=== PATIENT | female | born 1950 | race Caucasian/White ===

== ENCOUNTER 2016-10-03 14:09 | Inpatient (IN) | payer MEDICAID ==
[2016-10-03] VITALS (14 sets, daily range): BP systolic 95–191; BP diastolic 50–86; PULSE 46–68; RESP 12–21; TEMP 97.7; O2SAT 95–100
[~2016-10-03] VITALS: Ht 160 cm; Wt 80.8 kg
[~2016-10-03 14:09] MED LIST: ALBU8I INH; AZIT250T74 PO; CITA-48 PO; GLIP5 PO; HYDR-2768 PO; PERC10TA27 PO; PRED20 PO; SIMV20 PO; TRAZ50TA4 PO; XANA1TAB6 PO
--- NOTE | 2016-10-03 14:18 | PD ---
HPI Time Seen by Provider: 14:18 PFSH Past Medical History Anemia: Yes Arthritis: Yes Asthma: Yes Blood Disorders: No Bipolar Disorder: Yes Anxiety: Yes Depression: Yes Heart Rhythm Problems: No Cancer: Yes (PANCYTOPENIA - LEUKEMIA-myelodysplasia) Cardiac Catheterization: No Cardiovascular Problems: No High Cholesterol: No Chemotherapy: Yes (CURRENTLY) Congestive Heart Failure: No COPD: Yes Coronary Artery Disease: No Diabetes: Yes Diminished Hearing: Yes (SLIGHTLY [place]) Diverticulitis: Yes Endocrine: Yes Gastrointestinal Disorders: Yes (BOWEL OBSTRUCTION ) GERD: Yes Genitourinary: No Headaches: Yes Hypertension: No Immune Disorder: Yes (MYELODYSPLASIA) Musculoskeletal: Yes Neurologic: Yes Psychiatric: Yes (CLAUSTRAPHOBIA/ BIPOLAR) Reproductive: No Respiratory: Yes Immunizations Current: No Migraines: Yes Myocardial Infarction: No Radiation Therapy: No Menopausal: Yes : 5 Para: 3 Miscarriage: 1 : 1 Tubal Ligation: Yes Past Surgical History Abdominal Surgery: Yes (APPY, COLON RESECT/ ILEOSTOMY (reversed)) Appendectomy: Yes Coronary Artery Bypass Graft: No Ear Surgery: Yes (LEFT EAR -AGE 11) Oral Surgery: Yes (ORIF MANDIBLE) Pacemaker: No Tonsillectomy: Yes Other Surgery: Yes Social History Alcohol Use: No Tobacco Use: Yes (1/2 ppd) Substance Use: Yes Allergies-Medications (Allergen,Severity, Reaction): Coded Allergies: No Known Allergies (Unverified , 01/05/16) Reported Meds & Prescriptions Reported Meds & Active Scripts Active Deltasone 20 Mg Tab (Prednisone) 20 Mg Tab 20 Mg PO DAILY 4 Days Zithromax (Azithromycin) 250 Mg Tab 250 Mg PO DAILY 4 Days Ventolin Hfa (Albuterol Sulfate) 8 Gm Aero 1 Puff INH Q4 PRN * SHAKE WELL BEFORE USE * Reported Simvastatin 20 mg (Simvastatin) 20 Mg Tab 20 Mg PO HS Citalopram Hydrobromide 40 Mg Tab 40 Mg PO DAILY Trazodone Hcl (Trazodone HCl) 50 Mg Tab 50 Mg PO HS Percocet 10-325 mg (Oxycodone-Acetaminophen 10-325 mg) Oxycodone 10/325 Acetaminophen Tab 1 Tab PO TID Hctz (Hydrochlorothiazide) 25 Mg Tab 25 Mg PO EVERY OTHER DAY Glipizide 5 Mg Tab 5 Mg PO DAILY Xanax 1 mg (Alprazolam) Alprazolam 1 mg Tab 1 Mg PO TID Bronson Ramsey MD Oct 03, 2016 14:18
[2016-10-03] MEDS ORDERED: SODIUM CHLOR 0.9% 1000 ML INJ 1,000 ML IV ONE ×2 (14:19→18:00)
--- NOTE | 2016-10-03 14:26 | PD ---
HPI Chief Complaint: General Weakness Time Seen by Provider: 14:26 Travel History International Travel<30 days: No Contact w/Intl Traveler<30days: No Traveled to known affect area: No History of Present Illness HPI Patient 66-year-old female presenting to emergency for evaluation of hypoxia and hypotension. Patient was at her oncologist office, her vital signs were assessed and her O2 sat was 82% and her blood pressure was in the 80s systolic. Patient was placed on oxygen and EMS was notified. EMS states that she was 88 % on room air for them, she was placed on 2 L with a sat in the low 90s. Patient historically has low blood pressure however it usually in the mid upper 90s systolic, today it's been in the 80s. Patient states that she's been dealing with a chest cold for approximately one month, she just completed a course of azithromycin yesterday. She reports feeling weak, dizzy, nauseated. Her cough was productive with green sputum. She is currently on chemotherapy for myelodysplastic syndrome and she is followed by Dr. Mcclain. Past medical history is significant for COPD, type 2 diabetes, history of alcoholism and drug abuse remotely. PFSH Past Medical History Anemia: Yes Arthritis: Yes Asthma: Yes Blood Disorders: No Bipolar Disorder: Yes Anxiety: Yes Depression: Yes Heart Rhythm Problems: No Cancer: Yes (myelodysplastic syndrome) Cardiac Catheterization: No Cardiovascular Problems: No High Cholesterol: No Chemotherapy: Yes (VIDAZA) Congestive Heart Failure: No COPD: Yes Coronary Artery Disease: No Diabetes: Yes Diminished Hearing: Yes (SL[place]LY [place]) Diverticulitis: Yes GERD: Yes Genitourinary: No Headaches: Yes Hypertension: No Neurologic: Yes Reproductive: No Immunizations Current: No Migraines: Yes Myocardial Infarction: No Radiation Therapy: No Menopausal: Yes : 5 Para: 3 Miscarriage: 1 : 1 Tubal Ligation: Yes Past Surgical History Abdominal Surgery: Yes (COLON RESECT/ ILEOSTOMY (reversed)) Appendectomy: Yes Coronary Artery Bypass Graft: No Ear Surgery: Yes (LEFT EAR -AGE 11) Oral Surgery: Yes (ORIF MANDIBLE) Pacemaker: No Tonsillectomy: Yes Other Surgery: Yes Social History Alcohol Use: No (HX OF ALCOHOLISM) Tobacco Use: Yes (1/2 ppd) Substance Use: Yes Allergies-Medications (Allergen,Severity, Reaction): Coded Allergies: No Known Allergies (Unverified , 01/05/16) Reported Meds & Prescriptions Reported Meds & Active Scripts Active Reported Albuterol Neb (Albuterol Sulfate) 2.5 Mg/3 Ml Neb 2.5 Mg NEB TID NEB PRN Abilify (Aripiprazole) 20 Mg Tab 20 Mg PO DAILY Symbicort Inh (Budesonide/Formoterol Fumarate) 160-4.5 Mcg/Act Aero 1-2 Puff INH Q12HR PRN Lisinopril 5 Mg Tab 5 Mg PO DAILY Tradjenta (Linagliptin) 5 Mg Tab 5 Mg PO DAILY K-Tab (Potassium Chloride) 10 Meq Tab 10 Meq PO HS Lyrica (Pregabalin) 100 Mg Cap 100 Mg PO BID Omeprazole 20 Mg Tab 20 Mg PO DAILY Lortab (Hydrocodone-Acetaminophen) 10-325 Mg Tab 1 Tab PO TID PRN Hydrochlorothiazide 25 Mg Tab 25 Mg PO EVERY OTHER DAY PRN Alprazolam 1 Mg Tab 1 Mg PO TID PRN Glipizide XL (Glipizide) 5 Mg Redd 5 Mg PO BID Take with breakfast or first main meal of the day Simvastatin 20 Mg Tab 20 Mg PO HS Trazodone (Trazodone HCl) 50 Mg Tab 50 Mg PO HS PRN Citalopram (Citalopram Hydrobromide) 40 Mg Tab 40 Mg PO DAILY Ventolin Hfa 18 GM Inh (Albuterol Sulfate) 90 Mcg/Act Aer 2 Puff INH TID PRN Review of Systems Except as stated in HPI: all other systems reviewed are Neg General / Constitutional: Positive: Fever, Chills HENT: No: Headaches Cardiovascular: Positive: Dyspnea on exertion, No: Chest Pain or Discomfort Respiratory: Positive: Cough, Shortness of Breath Gastrointestinal: Positive: Nausea, No: Vomiting, Diarrhea, Abdominal Pain Genitourinary: No: Dysuria Neurologic: Positive: Weakness, Dizziness Physical Exam Narrative GENERAL: Well-developed, well-nourished, drowsy female. Resting in no acute distress. SKIN: Warm and dry. HEAD: Atraumatic. Normocephalic. EYES: Pupils equal and round. No scleral icterus. No injection or drainage. ENT: No nasal bleeding or discharge. Mucous membranes pink and moist. NECK: Trachea midline. No JVD. CARDIOVASCULAR: Regular rate and rhythm. RESPIRATORY: No accessory muscle use. Diminished, . GASTROINTESTINAL: Abdomen soft, non-tender, nondistended. Hepatic and splenic margins not palpable. MUSCULOSKELETAL: Extremities without clubbing, cyanosis, or edema. No obvious deformities. NEUROLOGICAL: Awake and alert. No obvious cranial nerve deficits. Motor grossly within normal limits. Five out of 5 muscle strength in the arms and legs. Normal speech. PSYCHIATRIC: Appropriate mood and affect; insight and judgment normal. Data Data Last Documented VS Vital Signs Date Time Temp Pulse Resp B/P Pulse Ox O2 Delivery O2 Flow Rate FiO2 10/03/16 17:30 100 50 10/03/16 15:12 BiPAP 10/03/16 14:25 14 2 10/03/16 14:13 97.7 54 114/57 Orders Electrocardiogram (10/03/16 14:19) Complete Blood Count With Diff (10/03/16 14:19) Comprehensive Metabolic Panel (10/03/16 14:19) Prothrombin Time / Inr (Pt) (10/03/16 14:19) Act Partial Throm Time (Ptt) (10/03/16 14:19) Lactic Acid Sepsis Protocol (10/03/16 14:19) Magnesium (Mg) (10/03/16 14:19) Ckmb (Isoenzyme) Profile (10/03/16 14:19) Troponin I (10/03/16 14:19) Urinalysis - C+S If Indicated (10/03/16 14:19) Blood Culture (10/03/16 14:19) Chest, Single Ap (10/03/16 14:19) Arterial Blood Gas (Abg) (10/03/16 14:19) Blood Glucose (10/03/16 14:19) Ecg Monitoring (10/03/16 14:19) Iv Access Insert/Monitor (10/03/16 14:19) Oximetry (10/03/16 14:19) Oxygen Administration (10/03/16 14:19) Sodium Chlor 0.9% 1000 Ml Inj (Ns 1000 M (10/03/16 14:19) Ct Pulmonary Angiogram (10/03/16 ) Resp Bipap / Cpap Non Invas Vt (10/03/16 ) Arterial Blood Gas (Abg) (10/03/16 15:50) Precautions (10/03/16 15:53) Urine Culture (10/03/16 16:15) Iohexol 350 Inj (Omnipaque 350 Inj) (10/03/16 16:54) Succinylcholine Inj (Quelicin Inj) (10/03/16 17:15) Etomidate Inj (Amidate Inj) (10/03/16 17:15) Propofol 1000 Mg/100 Ml Inj (Diprivan 10 (10/03/16 17:15) ^ Infusion (10/03/16 17:09) RASS (10/03/16 17:09) Neurological Rass Scale AICHA.Q2H (10/03/16 17:09) Propofol 1000 Mg/100 Ml Inj (Diprivan 10 (10/03/16 17:12) Succinylcholine Inj (Quelicin Inj) (10/03/16 17:15) Chest, Single Ap (10/03/16 ) Sodium Chlor 0.9% 1000 Ml Inj (Ns 1000 M (10/03/16 18:00) Arterial Blood Gas (Abg) (10/03/16 18:30) Restraints Non-Violent AICHA.Q3H (10/03/16 17:56) C Diff Toxin Pcr (10/03/16 17:56) Midazolam Inj (Versed Inj) (10/03/16 18:00) Midazolam Inj (Versed Inj) (10/03/16 18:01) Fentanyl Inj (Fentanyl Inj) (10/03/16 18:15) Midazolam 100 Mg/Ml Inj (Versed 100 Mg/M (10/03/16 18:15) Neurological Rass Scale Q30MX2,Q2HX4,Q4H (10/03/16 18:06) Sputum Culture And Gram Stain (10/03/16 18:14) Admit Order (Ed Use Only) (10/03/16 18:13) Labs Laboratory Tests Test 10/03/16 10/03/16 10/03/16 10/03/16 14:32 14:35 15:55 16:15 Blood Gas Puncture Site RT RADIAL LT RADIAL Blood Gas Patient Temperature 98.6 98.6 Blood Gas HCO3 29 mmol/L 27 mmol/L Blood Gas Base Excess 2.3 mmol/L 0.6 mmol/L Blood Gas Oxygen Saturation 88 % 94 % Arterial Blood pH 7.26 7.23 Arterial Blood Partial 66 mmHg 68 mmHg Pressure CO2 Arterial Blood Partial 83 mmHG 477 mmHG Pressure O2 Arterial Blood Oxygen Content 11.4 Vol % 13.3 Vol % Arterial Blood 7.2 % 5.0 % Carboxyhemoglobin Arterial Blood Methemoglobin 0.9 % 0.7 % Blood Gas Hemoglobin 9.1 G/DL 9.1 G/DL Oxygen Delivery Device NASAL CANNULA BIPAP Blood Gas Liter Flow 2 L/M White Blood Count 1.8 TH/MM3 Red Blood Count 3.00 MIL/MM3 Hemoglobin 9.5 GM/DL Hematocrit 28.4 % Mean Corpuscular Volume 94.5 FL Mean Corpuscular Hemoglobin 31.5 PG Mean Corpuscular Hemoglobin 33.4 % Concent Red Cell Distribution Width 20.3 % Platelet Count 56 TH/MM3 Mean Platelet Volume 10.6 FL Neutrophils (%) (Auto) 60.0 % Lymphocytes (%) (Auto) 27.2 % Monocytes (%) (Auto) 9.9 % Eosinophils (%) (Auto) 1.8 % Basophils (%) (Auto) 1.1 % Neutrophils # (Auto) 1.1 TH/MM3 Lymphocytes # (Auto) 0.5 TH/MM3 Monocytes # (Auto) 0.2 TH/MM3 Eosinophils # (Auto) 0.0 TH/MM3 Basophils # (Auto) 0.0 TH/MM3 CBC Comment AUTO DIFF Differential Total Cells 100 Counted Neutrophils % (Manual) 49 % Band Neutrophils % 3 % Lymphocytes % 34 % Monocytes % 10 % Eosinophils % 3 % Neutrophils # (Manual) 1.0 TH/MM3 Metamyelocytes 1 % Differential Comment FINAL DIFF MANUAL Platelet Estimate LOW Platelet Morphology Comment NORMAL Prothrombin Time 11.0 SEC Prothromb Time International 1.0 RATIO Ratio Activated Partial 28.2 SEC Thromboplast Time Sodium Level 141 MEQ/L Potassium Level 3.8 MEQ/L Chloride Level 107 MEQ/L Carbon Dioxide Level 30.5 MEQ/L Anion Gap 4 MEQ/L Blood Urea Nitrogen 13 MG/DL Creatinine 0.88 MG/DL Estimat Glomerular Filtration 65 ML/MIN Rate Random Glucose 83 MG/DL Lactic Acid Level 0.6 mmol/L Calcium Level 7.8 MG/DL Magnesium Level 1.9 MG/DL Total Bilirubin 0.3 MG/DL Aspartate Amino Transf 13 U/L (AST/SGOT) Alanine Aminotransferase 15 U/L (ALT/SGPT) Alkaline Phosphatase 81 U/L Total Creatine Kinase 74 U/L Troponin I LESS THAN 0.02 NG/ML Total Protein 6.4 GM/DL Albumin 3.0 GM/DL Blood Gas Ventilator Setting 16/8/RATE 12 Blood Gas Inspired Oxygen 100 % Urine Color YELLOW Urine Turbidity CLEAR Urine pH 5.0 Urine Specific [place] 1.011 Urine Protein NEG mg/dL Urine Glucose (UA) NEG mg/dL Urine Ketones NEG mg/dL Urine Occult Blood NEG Urine Nitrite NEG Urine Bilirubin NEG Urine Urobilinogen LESS THAN 2.0 MG/DL Urine Leukocyte Esterase NEG Urine RBC LESS THAN 1 /hpf Urine WBC 1 /hpf Urine Squamous Epithelial 2 /hpf Cells Urine Amorphous Sediment RARE Urine Bacteria RARE /hpf Urine Hyaline Casts 7 /lpf Urine Mucus FEW /lpf Microscopic Urinalysis Comment CATH-CULTURE IND MDM Medical Decision Making Medical Screen Exam Complete: Yes Emergency Medical Condition: Yes Interpretation(s) Last Impressions Chest X-Ray 10/03/16 1419 Signed Impressions: Service Date/Time: Monday, October 03, 2016 14:24 - CONCLUSION: Normal examination. Giorgi Lisa MD CT Angiography 10/03/16 0000 Signed Impressions: Service Date/Time: Monday, October 03, 2016 16:45 - CONCLUSION: No evidence of pulmonary embolism. Mild scarring predominantly in the lung bases, right greater than left. No mass is seen. Giorgi Lisa MD Laboratory Tests Test 10/03/16 10/03/16 10/03/16 10/03/16 14:32 14:35 15:55 16:15 Blood Gas Puncture Site RT RADIAL LT RADIAL Blood Gas Patient Temperature 98.6 98.6 Blood Gas HCO3 29 mmol/L 27 mmol/L Blood Gas Base Excess 2.3 mmol/L 0.6 mmol/L Blood Gas Oxygen Saturation 88 % 94 % Arterial Blood pH 7.26 7.23 Arterial Blood Partial 66 mmHg 68 mmHg Pressure CO2 Arterial Blood Partial 83 mmHG 477 mmHG Pressure O2 Arterial Blood Oxygen Content 11.4 Vol % 13.3 Vol % Arterial Blood 7.2 % 5.0 % Carboxyhemoglobin Arterial Blood Methemoglobin 0.9 % 0.7 % Blood Gas Hemoglobin 9.1 G/DL 9.1 G/DL Oxygen Delivery Device NASAL CANNULA BIPAP Blood Gas Liter Flow 2 L/M White Blood Count 1.8 TH/MM3 Red Blood Count 3.00 MIL/MM3 Hemoglobin 9.5 GM/DL Hematocrit 28.4 % Mean Corpuscular Volume 94.5 FL Mean Corpuscular Hemoglobin 31.5 PG Mean Corpuscular Hemoglobin 33.4 % Concent Red Cell Distribution Width 20.3 % Platelet Count 56 TH/MM3 Mean Platelet Volume 10.6 FL Neutrophils (%) (Auto) 60.0 % Lymphocytes (%) (Auto) 27.2 % Monocytes (%) (Auto) 9.9 % Eosinophils (%) (Auto) 1.8 % Basophils (%) (Auto) 1.1 % Neutrophils # (Auto) 1.1 TH/MM3 Lymphocytes # (Auto) 0.5 TH/MM3 Monocytes # (Auto) 0.2 TH/MM3 Eosinophils # (Auto) 0.0 TH/MM3 Basophils # (Auto) 0.0 TH/MM3 CBC Comment AUTO DIFF Differential Total Cells 100 Counted Neutrophils % (Manual) 49 % Band Neutrophils % 3 % Lymphocytes % 34 % Monocytes % 10 % Eosinophils % 3 % Neutrophils # (Manual) 1.0 TH/MM3 Metamyelocytes 1 % Differential Comment FINAL DIFF MANUAL Platelet Estimate LOW Platelet Morphology Comment NORMAL Prothrombin Time 11.0 SEC Prothromb Time International 1.0 RATIO Ratio Activated Partial 28.2 SEC Thromboplast Time Sodium Level 141 MEQ/L Potassium Level 3.8 MEQ/L Chloride Level 107 MEQ/L Carbon Dioxide Level 30.5 MEQ/L Anion Gap 4 MEQ/L Blood Urea Nitrogen 13 MG/DL Creatinine 0.88 MG/DL Estimat Glomerular Filtration 65 ML/MIN Rate Random Glucose 83 MG/DL Lactic Acid Level 0.6 mmol/L Calcium Level 7.8 MG/DL Magnesium Level 1.9 MG/DL Total Bilirubin 0.3 MG/DL Aspartate Amino Transf 13 U/L (AST/SGOT) Alanine Aminotransferase 15 U/L (ALT/SGPT) Alkaline Phosphatase 81 U/L Total Creatine Kinase 74 U/L Troponin I LESS THAN 0.02 NG/ML Total Protein 6.4 GM/DL Albumin 3.0 GM/DL Blood Gas Ventilator Setting 16/8/RATE 12 Blood Gas Inspired Oxygen 100 % Urine Color YELLOW Urine Turbidity CLEAR Urine pH 5.0 Urine Specific [place] 1.011 Urine Protein NEG mg/dL Urine Glucose (UA) NEG mg/dL Urine Ketones NEG mg/dL Urine Occult Blood NEG Urine Nitrite NEG Urine Bilirubin NEG Urine Urobilinogen LESS THAN 2.0 MG/DL Urine Leukocyte Esterase NEG Urine RBC LESS THAN 1 /hpf Urine WBC 1 /hpf Urine Squamous Epithelial 2 /hpf Cells Urine Amorphous Sediment RARE Urine Bacteria RARE /hpf Urine Hyaline Casts 7 /lpf Urine Mucus FEW /lpf Microscopic Urinalysis Comment CATH-CULTURE IND Vital Signs Date Time Temp Pulse Resp B/P Pulse Ox O2 Delivery O2 Flow Rate FiO2 10/03/16 14:54 100 100 10/03/16 14:25 14 95 Nasal Cannula 2 10/03/16 14:13 97.7 54 12 114/57 95 Differential Diagnosis Pulmonary embolism versus pneumonia versus pneumothorax versus anemia versus sepsis versus metabolic abnormality versus other Narrative Course Patient is a 66-year-old female presenting for evaluation of hypoxia and hypotension. Patient has mild dysplastic syndrome and was at Dr. Sy's office this morning and then eventually sent to emergency department. I discussed with Dr. Mcclain the events that transpired in the office. He states that her oxygen saturation was 82% on room air she was noted to be hypotensive this uncharacteristic for her. He states he is known her for several years and she has been very stable despite having a history of COPD. Labs and imaging ordered and pending. ABG shows respiratory acidosis, patient placed on BiPAP 16/8 and is tolerating. Repeat ABG ordered for 1599. Repeat ABG continued to show respiratory acidosis despite Bipap. Discussed with patient the results and the likely possibility of respiratory failure without intubation. CBC - WBC 1.8, hemoglobin 9.5/28.4 Chest x-ray showed no acute disease Urinalysis with her bacteria, reflux culture pending. Patient did not have any complaints of dysuria. CTA read by radiologist as negative for pulmonary embolism, mass. INTUBATION: The patient was put in optimal position for the procedure. Rapid sequence intubation was initiated by Dr. Ramsey using 20 milligrams of etomidate IV and 100 milligrams of succinylcholine IV. The patient was intubated with a 7.5 cuffed endotracheal tube. Tube placement was confirmed by visualization of the tube and balloon passing through the cords, capnometry and subsequent chest x-ray. Breath sounds were equal and well aerated bilaterally postintubation. No breath sounds over stomach. Patient tolerated procedure well Propofol drip started, patient became hypotensive, 1 L IV fluids ordered. Pt started to arouse and fight the ET tube, 2mg Versed ordered per Dr. Ramsey. Urinary catheter and NGT ordered Repeat ABG ordered for 1829. Dr. Ramsey spoke with Dr. Boswell who accepted admission. Diagnosis Primary Impression: Respiratory failure Qualified Code: J96.02 - Acute respiratory failure with hypercapnia Additional Impressions: Pancytopenia Myelodysplasia Admitting Information Admitting Physician Requests: Admit Condition: Critical Ghada Flor Oct 03, 2016 14:26 Admitting Physician Requests: Admit Condition: Critical Ghada Flor Oct 03, 2016 14:26
[2016-10-03 14:39] LABS: BLOOD GAS BASE EXCESS 2.3 mmol/L (-2-2); BLOOD GAS CARBOXYHEMOGLOBIN 7.2 % (0-4); BLOOD GAS HCO3 29 mmol/L (22-26); BLOOD GAS METHEMOGLOBIN 0.9 % (0-2); BLOOD GAS O2 HGB SATURATION 88 % (90-100); BLOOD GAS OXYGEN CONTENT 11.4 Vol % (12.0-20.0); BLOOD GAS PCO2 66 mmHg (38-42); BLOOD GAS PO2 83 mmHG (61-120); BLOOD GAS TOTAL HGB 9.1 G/DL (12.0-16.0); TEMP CORR TO 98.6
[2016-10-03 14:40] LABS: CRITICAL VALUE YES; DRAW SITE RT RADIAL; LITER FLOW 2 L/M; NUMBER OF ARTERIAL PUNCTURES 1; OXYGEN DEVICE NASAL CANNULA; STAT YES; ULNAR PULSE PRESENT
--- NOTE | 2016-10-03 15:01 | RADRPT ---
EXAM DATE/TIME: 10/03/2016 14:24 [facility] COMPARISON: CHEST SINGLE AP, January 15, 2015, 19:01. INDICATIONS : Short of breath, cold for 1 week. MEDICAL HISTORY : Chronic obstructive pulmonary disease. low blood pressure SURGICAL HISTORY : None. ENCOUNTER: Initial ACUITY: 1 week PAIN SCORE: 0/10 LOCATION: Bilateral chest FINDINGS: A single view of the chest demonstrates the lungs to be symmetrically aerated without evidence of mas s, infiltrate or effusion. The cardiomediastinal contours are unremarkable. Osseous structures are intact. CONCLUSION: Normal examination. Giorgi Lisa MD on October 03, 2016 at 14:59 Board Certified Radiologist. This report was verified electronically.
[2016-10-03] MEDS ORDERED: TRAZ50TA12 PO (15:13)
[2016-10-03] MEDS ORDERED: CITA40TA4 PO (15:13)
[2016-10-03] MEDS ORDERED: GLIP5TAB8 PO (15:13)
[2016-10-03] MEDS ORDERED: VENTAER INH (15:13)
[2016-10-03] MEDS ORDERED: SIMV20TA PO (15:13)
[2016-10-03] MEDS ORDERED: ALPR1TAB3 PO (15:15)
[2016-10-03] MEDS ORDERED: GLIP-157 PO (15:15)
[2016-10-03] MEDS ORDERED: HYDR25TA5 PO (15:18)
[2016-10-03] MEDS ORDERED: HYDR-3535 PO (15:18)
[2016-10-03] MEDS ORDERED: SYMB160A INH (15:21)
[2016-10-03] MEDS ORDERED: TRAD5TAB PO (15:21)
[2016-10-03] MEDS ORDERED: LYRI100C PO (15:21)
[2016-10-03] MEDS ORDERED: K-TA10TA PO (15:21)
[2016-10-03] MEDS ORDERED: OMEP20TA PO (15:21)
[2016-10-03] MEDS ORDERED: ALBU0.08 NEB (15:21)
[2016-10-03] MEDS ORDERED: LISI-519 PO (15:21)
[2016-10-03] MEDS ORDERED: ARIP1TAB7 PO (15:21)
[2016-10-03 15:46] LABS: AUTOMATED NEUTROPHIL # 1.1 TH/MM3 (1.8-7.7); BASOPHIL % 1.1 % (0.0-2.0); EOSINOPHIL % 1.8 % (0.0-4.0); HEMATOCRIT 28.4 % (35.0-46.0); LYMPH % 27.2 % (9.0-44.0); LYMPHOCYTE # 0.5 TH/MM3 (1.0-4.8); MEAN CELL VOLUME 94.5 FL (80.0-100.0); MEAN CORPUSCULAR HEMOGLOBIN 31.5 PG (27.0-34.0); MEAN CORPUSCULAR HGB CONC 33.4 % (32.0-36.0); MONO % 9.9 % (0.0-8.0); PLATELET COUNT 56 TH/MM3 (150-450); RED CELL DISTRIBUTION WIDTH 20.3 % (11.6-17.2); WHITE BLOOD COUNT 1.8 TH/MM3 (4.0-11.0)
[2016-10-03 15:50] LABS: APTT (PATIENT) 28.2 SEC (24.3-30.1); HEMO FLAGS AUTO DIFF
[2016-10-03 16:00] LABS: ALT (GPT) 15 U/L (10-53); ANION GAP 4 MEQ/L (5-15); AST (GOT) 13 U/L (15-37); BICARBONATE 30.5 MEQ/L (21.0-32.0); BLOOD UREA NITROGEN 13 MG/DL (7-18); CHLORIDE 107 MEQ/L (98-107); GLOMERULAR FILTRATION RATE 65 ML/MIN (>89); MAGNESIUM 1.9 MG/DL (1.5-2.5); POTASSIUM 3.8 MEQ/L (3.5-5.1); SODIUM (NA) 141 MEQ/L (136-145)
[2016-10-03 16:01] LABS: BLOOD GAS BASE EXCESS 0.6 mmol/L (-2-2); BLOOD GAS HCO3 27 mmol/L (22-26); BLOOD GAS METHEMOGLOBIN 0.7 % (0-2); BLOOD GAS O2 HGB SATURATION 94 % (90-100); BLOOD GAS OXYGEN CONTENT 13.3 Vol % (12.0-20.0); BLOOD GAS PCO2 68 mmHg (38-42); BLOOD GAS PO2 477 mmHG (61-120); BLOOD GAS TOTAL HGB 9.1 G/DL (12.0-16.0); CRITICAL VALUE YES; DRAW SITE LT RADIAL; FIO2 100 %; NUMBER OF ARTERIAL PUNCTURES 1; OXYGEN DEVICE BIPAP; TEMP CORR TO 98.6; ULNAR PULSE Y; VENT SETTINGS 16/8/RATE 12
[2016-10-03 16:02] LABS: STAT YES
[2016-10-03 16:03] LABS: ALKALINE PHOSPHATASE 81 U/L (45-117); TOTAL BILIRUBIN ADULT 0.3 MG/DL (0.2-1.0)
[2016-10-03 16:11] LABS: CREATINE KINASE 74 U/L (26-192)
[2016-10-03 16:35] LABS: BACTERIA, URINE RARE /hpf; BLOOD, URINE NEG (NEG); GLUCOSE,URINE NEG (NEG); HYALINE CAST, URINE 7 /lpf (RARE); KETONE, URINE NEG (NEG); MUCUS URINE FEW /lpf (OCC); NITRITE,URINE NEG (NEG); SQUAMOUS EPITHELIAL CELL URINE 2 /hpf (0-5); URINE COLOR YELLOW (YELLW/STRAW)
[2016-10-03 16:36] LABS: COMMENT (UR) CATH-CULTURE IND; CULTURE IF INDICATED CATH CULTURE IND
[2016-10-03] MEDS ORDERED: IOHEXOL 350 MG/ML 10 ML VIAL (for RAD DIAG) IV ONE (16:54)
[2016-10-03] MEDS ORDERED: PROPOFOL 1000 MG/100 ML INJ 100 ML ONE (17:12)
[2016-10-03] MEDS ORDERED: ETOMIDATE 20 MG/10 ML VIAL IV PUSH ONE (17:15)
[2016-10-03] MEDS ORDERED: PROPOFOL 1000 MG/100 ML INJ 100 ML IV SCH (17:15)
[2016-10-03] MEDS ORDERED: SUCCINYLCHOLINE CHLORIDE 200 MG/10 ML VIAL ONE (17:15)
[2016-10-03] MEDS ORDERED: SUCCINYLCHOLINE CHLORIDE 200 MG/10 ML VIAL IV PUSH ONE (17:15)
--- NOTE | 2016-10-03 17:25 | RADRPT ---
EXAM DATE/TIME: 10/03/2016 16:45 [facility] COMPARISON: No previous studies available for comparison. INDICATIONS : Patient hypotensive and short of breath. IV CONTRAST: 75 cc Omnipaque 350 (iohexol) IV RADIATION DOSE: 23.43 CTDIvol (mGy) MEDICAL HISTORY : Diabetes mellitus type 1. Chronic obstructive pulmonary disease. Leukemia. SURGICAL HISTORY : Appendectomy. Tubal ligation. ENCOUNTER: Initial ACUITY: 1 day PAIN SCALE: 5/10 LOCATION: Bilateral chest TECHNIQUE: Volumetric scanning of the chest was performed using a pulmonary embolism protocol MIP images were re constructed. Using automated exposure control and adjustment of the mA and/or kV according to patien t size, radiation dose was kept as low as reasonably achievable to obtain optimal diagnostic quality images. DICOM format image data is available electronically for review and comparison. Follow-up recommendations for incidentally detected pulmonary nodules are based at a minimum on nodul e size and patient risk factors according to Fleischner Society Guidelines. FINDINGS: CTA of the chest demonstrates no obvious pulmonary embolism. No filling defects are noted. There is coronary atherosclerotic disease present. Lungs are clear except for mild bibasilar atelectasis and diffuse scarring. CONCLUSION: No evidence of pulmonary embolism. Mild scarring predominantly in the lung bases, right greater than left. No mass is seen. Giorgi Lisa MD on October 03, 2016 at 17:21 Board Certified Radiologist. This report was verified electronically.
--- NOTE | 2016-10-03 17:35 | PD ---
Physical Exam Date Seen by Provider: Oct 03, 2016 Narrative 66-year-old female was sent from her oncologist office for hypoxia. Her oxygen saturation at the office was 84%. Patient was short of breath. Patient was brought in by EMS. Patient was seen by the nurse practitioner and I'm supervising her. The nurse practitioner spoke with the oncologist Dr. Mcclain and was told that he has known her as a cancer patient for some time and the hypoxia is a new onset symptom. He was worried about pneumonia as well as PE. CT scan for pulmonary angiogram was ordered. Awaiting for the CAT scan report. Meanwhile patient had a blood gas done that showed respiratory acidosis. She was started on BiPAP as per my orders. However the repeat blood gas did not improve the respiratory acidosis. At this point I went and spoke with the patient again and explained to her the situation. Patient appeared to be more lethargic than before but did seem to understand. I explained to her that in order to prevent respiratory failure and crash intubation I would recommend a control intubation at this point and patient consented verbally to that. Intubation was done by my nurse practitioner and I supervised her. He is referred to my procedure note. Patient tolerated the procedure well. Post intubation x-ray will be ordered. Awaiting for the shank threader to call back. Data Data Last Documented VS Orders Electrocardiogram (10/03/16 14:19) Complete Blood Count With Diff (10/03/16 14:19) Comprehensive Metabolic Panel (10/03/16 14:19) Prothrombin Time / Inr (Pt) (10/03/16 14:19) Act Partial Throm Time (Ptt) (10/03/16 14:19) Lactic Acid Sepsis Protocol (10/03/16 14:19) Magnesium (Mg) (10/03/16 14:19) Ckmb (Isoenzyme) Profile (10/03/16 14:19) Troponin I (10/03/16 14:19) Urinalysis - C+S If Indicated (10/03/16 14:19) Blood Culture (10/03/16 14:19) Chest, Single Ap (10/03/16 14:19) Arterial Blood Gas (Abg) (10/03/16 14:19) Blood Glucose (10/03/16 14:19) Ecg Monitoring (10/03/16 14:19) Iv Access Insert/Monitor (10/03/16 14:19) Oximetry (10/03/16 14:19) Oxygen Administration (10/03/16 14:19) Sodium Chlor 0.9% 1000 Ml Inj (Ns 1000 M (10/03/16 14:19) Ct Pulmonary Angiogram (10/03/16 ) Resp Bipap / Cpap Non Invas Vt (10/03/16 ) Arterial Blood Gas (Abg) (10/03/16 15:50) Precautions (10/03/16 15:53) Urine Culture (10/03/16 16:15) Iohexol 350 Inj (Omnipaque 350 Inj) (10/03/16 16:54) Succinylcholine Inj (Quelicin Inj) (10/03/16 17:15) Etomidate Inj (Amidate Inj) (10/03/16 17:15) Propofol 1000 Mg/100 Ml Inj (Diprivan 10 (10/03/16 17:15) ^ Infusion (10/03/16 17:09) RASS (10/03/16 17:09) Neurological Rass Scale AICHA.Q2H (10/03/16 17:09) Propofol 1000 Mg/100 Ml Inj (Diprivan 10 (10/03/16 17:12) Succinylcholine Inj (Quelicin Inj) (10/03/16 17:15) Chest, Single Ap (10/03/16 ) Sodium Chlor 0.9% 1000 Ml Inj (Ns 1000 M (10/03/16 18:00) Arterial Blood Gas (Abg) (10/03/16 18:30) Restraints Non-Violent AICHA.Q3H (10/03/16 17:56) Midazolam Inj (Versed Inj) (10/03/16 18:00) Midazolam Inj (Versed Inj) (10/03/16 18:01) Fentanyl Inj (Fentanyl Inj) (10/03/16 18:15) Midazolam 100 Mg/Ml Inj (Versed 100 Mg/M (10/03/16 18:15) Neurological Rass Scale Q30MX2,Q2HX4,Q4H (10/03/16 18:06) Sputum Culture And Gram Stain (10/03/16 18:14) Admit Order (Ed Use Only) (10/03/16 18:13) Labs Laboratory Tests Test 10/03/16 10/03/16 14:35 16:15 White Blood Count 1.8 TH/MM3 Red Blood Count 3.00 MIL/MM3 Hemoglobin 9.5 GM/DL Hematocrit 28.4 % Mean Corpuscular Volume 94.5 FL Mean Corpuscular Hemoglobin 31.5 PG Mean Corpuscular Hemoglobin 33.4 % Concent Red Cell Distribution Width 20.3 % Platelet Count 56 TH/MM3 Mean Platelet Volume 10.6 FL Neutrophils (%) (Auto) 60.0 % Lymphocytes (%) (Auto) 27.2 % Monocytes (%) (Auto) 9.9 % Eosinophils (%) (Auto) 1.8 % Basophils (%) (Auto) 1.1 % Neutrophils # (Auto) 1.1 TH/MM3 Lymphocytes # (Auto) 0.5 TH/MM3 Monocytes # (Auto) 0.2 TH/MM3 Eosinophils # (Auto) 0.0 TH/MM3 Basophils # (Auto) 0.0 TH/MM3 CBC Comment AUTO DIFF Differential Total Cells 100 Counted Neutrophils % (Manual) 49 % Band Neutrophils % 3 % Lymphocytes % 34 % Monocytes % 10 % Eosinophils % 3 % Neutrophils # (Manual) 1.0 TH/MM3 Metamyelocytes 1 % Differential Comment FINAL DIFF MANUAL Platelet Estimate LOW Platelet Morphology Comment NORMAL Urine Color YELLOW Urine Turbidity CLEAR Urine pH 5.0 Urine Specific [place] 1.011 Urine Protein NEG mg/dL Urine Glucose (UA) NEG mg/dL Urine Ketones NEG mg/dL Urine Occult Blood NEG Urine Nitrite NEG Urine Bilirubin NEG Urine Urobilinogen LESS THAN 2.0 MG/DL Urine Leukocyte Esterase NEG Urine RBC LESS THAN 1 /hpf Urine WBC 1 /hpf Urine Squamous Epithelial 2 /hpf Cells Urine Amorphous Sediment RARE Urine Bacteria RARE /hpf Urine Hyaline Casts 7 /lpf Urine Mucus FEW /lpf Microscopic Urinalysis Comment CATH-CULTURE IND MDM Supervised Visit with LEMUEL: Yes Critical Care Narrative Aggregate critical care time was 60 minutes. Time to perform other separately billable procedures was not included in the critical care time. My time did not include minutes spent treating any other patients simultaneously or on activities that did not directly contribute to the patient's treatment. The services I provided to this patient were to treat and/or prevent clinically significant deterioration that could result in: Hypoxia, respiratory acidosis, impending respiratory failure I provided critical care services requiring my management, as noted below: Chart data review, documentation time, medication orders and management, vital sign assessments/reviewing monitor data, ordering and reviewing lab tests, ordering and interpreting/reviewing x-rays and diagnostic studies, care of the patient and discussion of the patient with the admitting physicians. Procedures Procedure Narrative After the risks and benefits were discussed the following procedure was performed: INTUBATION: The patient was put in optimal position for the procedure. Rapid sequence intubation was initiated by me using 20 milligrams of etomidate IV and 100 milligrams of succinylcholine IV. The patient was intubated with a 7.5 cuffed endotracheal tube. Tube placement was confirmed by visualization of the tube and balloon passing through the cords, capnometry and subsequent chest x-ray. Breath sounds were equal and well aerated bilaterally postintubation. No breath sounds over stomach. Patient tolerated procedure well. Diagnosis Primary Impression: Respiratory acidosis Additional Impression: Respiratory failure Qualified Code: J96.02 - Acute respiratory failure with hypercapnia Admitting Information Admitting Physician Requests: Admit Scripts Prednisone 10 Mg Tab10 Mg PO DAILY #3 TAB Ref 0 Prov:Ivanna Pinzon MD 10/07/16 Prednisone 5 Mg Tab5 Mg PO DAILY #3 TAB Ref 0 Prov:Ivanna Pinzon MD 10/07/16 Prednisone 20 Mg Tab20 Mg PO DAILY #3 TAB Ref 0 Prov:Ivanna Pinzon MD 10/07/16 Prednisone 20 Mg Tab40 Mg PO DAILY #4 TAB Ref 0 Take 40 mg (2 tablets) daily for 5 days Prov:Ivanna Pinzon MD 10/07/16 Prednisone 20 Mg Tab40 Mg PO BID #8 TAB Prov:Ivanna Pinzon MD 10/07/16 Levofloxacin (Levaquin)750 Mg [id number] Mg PO DAILY@21 #2 TAB Prov:Ivanna Pinzon MD 10/07/16 Oxygen tank 1 Ea Tank #1 Liter Bobby.canula Continuous Oxygen Concentrator Portable Gaseous 2 L/min via Nasal Cannula Continuous For 99 months Prov:Ivanna Pinzon MD 10/07/16 Bronson Ramsey MD Oct 03, 2016 17:35 Urine Mucus FEW /lpf Microscopic Urinalysis Comment CATH-CULTURE IND MDM Supervised Visit with LEMUEL: Yes Critical Care Narrative Aggregate critical care time was 60 minutes. Time to perform other separately billable procedures was not included in the critical care time. My time did not include minutes spent treating any other patients simultaneously or on activities that did not directly contribute to the patient's treatment. The services I provided to this patient were to treat and/or prevent clinically significant deterioration that could result in: Hypoxia, respiratory acidosis, impending respiratory failure I provided critical care services requiring my management, as noted below: Chart data review, documentation time, medication orders and management, vital sign assessments/reviewing monitor data, ordering and reviewing lab tests, ordering and interpreting/reviewing x-rays and diagnostic studies, care of the patient and discussion of the patient with the admitting physicians. Procedures Procedure Narrative After the risks and benefits were discussed the following procedure was performed: INTUBATION: The patient was put in optimal position for the procedure. Rapid sequence intubation was initiated by me using 20 milligrams of etomidate IV and 100 milligrams of succinylcholine IV. The patient was intubated with a 7.5 cuffed endotracheal tube. Tube placement was confirmed by visualization of the tube and balloon passing through the cords, capnometry and subsequent chest x-ray. Breath sounds were equal and well aerated bilaterally postintubation. No breath sounds over stomach. Patient tolerated procedure well. Diagnosis Primary Impression: Respiratory acidosis Additional Impression: Respiratory failure Qualified Code: J96.02 - Acute respiratory failure with hypercapnia Admitting Information Admitting Physician Requests: Admit Bronson Ramsey MD Oct 03, 2016 17:35
[2016-10-03 17:43] LABS: BANDS 3 % (0-6); EOSINOPHILS 3 % (0-4); METAMYELOCYTES 1 % (0-1); POLYS (SEG NEUTROPHILS) 49 % (16-70); WBC DIFF SAMPLE 100
[2016-10-03 17:44] LABS: PLATELET ESTIMATE SMEAR LOW (NORMAL); PLATELET MORPHOLOGY NORMAL (NORMAL); SCAN/DIFF FINAL DIFF MANUAL
[2016-10-03] MEDS ORDERED: MIDAZOLAM HCL 2 MG/2 ML VIAL IV PUSH ONE (18:00)
[2016-10-03] MEDS ORDERED: MIDAZOLAM HCL 5 MG/ML VIAL (1 ML) ONE (18:01)
[2016-10-03] MEDS ORDERED: MIDAZOLAM 100 MG/ML INJ 100 ML IV SCH ×2 (18:15→19:00)
[2016-10-03] MEDS ORDERED: MIDAZOLAM 100 MG/ML INJ 100 ML ONE (18:27)
[2016-10-03] MEDS ORDERED: RESP: ALBUTEROL 2.5 MG/IPRATROPIUM 0.5 MG NEB (SCH) NEB (18:30)
[2016-10-03] MEDS ORDERED: fentaNYL DRIP 250 ML IV SCH ×2 (18:30→19:00)
[2016-10-03] MEDS ORDERED: DOPamine INJ PREMIX 500 ML IV SCH (18:30)
[2016-10-03] MEDS ORDERED: TERBUTALINE INJ 1 MG/ML AMP SQ PRN (18:30)
[2016-10-03] MEDS ORDERED: fentaNYL DRIP 250 ML ONE (18:39)
[2016-10-03] MEDS ORDERED: RESP: ALBUTEROL 2.5 MG/IPRATROPIUM 0.5 MG NEB (PRN) ONE (18:41)
[2016-10-03 18:49] LABS: BLOOD GAS BASE EXCESS -2.9 mmol/L (-2-2); BLOOD GAS CARBOXYHEMOGLOBIN 2.7 % (0-4); BLOOD GAS HCO3 24 mmol/L (22-26); BLOOD GAS METHEMOGLOBIN 0.8 % (0-2); BLOOD GAS O2 HGB SATURATION 93 % (90-100); BLOOD GAS OXYGEN CONTENT 11.8 Vol % (12.0-20.0); BLOOD GAS PCO2 66 mmHg (38-42); BLOOD GAS PO2 106 mmHG (61-120); BLOOD GAS TOTAL HGB 8.8 G/DL (12.0-16.0); CRITICAL VALUE YES; OXYGEN DEVICE PRVC; TEMP CORR TO 98.6; VENT SETTINGS 18/500/5
[2016-10-03 18:50] LABS: DRAW SITE RT RADIAL; FIO2 50 %; NUMBER OF ARTERIAL PUNCTURES 1; STAT YES; ULNAR PULSE Y
[2016-10-03] MEDS ORDERED: CHLORHEXIDINE GLUCONATE 2 % 1 PACK (2 CLOTHS) TOP PRN (19:00)
[2016-10-03] MEDS ORDERED: POTASSIUM PHOSPHATE INJ 30 MMOL in SODIUM CHLOR 0.9% 250 ML INJ 250 ML IV PRN (19:00)
[2016-10-03] MEDS ORDERED: SODIUM CHLORIDE 0.9% FLUSH 10 ML FLUSH IV FLUSH PRN (19:00)
[2016-10-03] MEDS ORDERED: POTASSIUM PHOSPHATE MONOBASIC 500 MG TAB PO/TUBE PRN (19:00)
[2016-10-03] MEDS ORDERED: RESP: ALBUTEROL 2.5 MG/3 ML NEB (PRN) INH (19:00)
[2016-10-03] MEDS ORDERED: SODIUM PHOSPHATE INJ 30 MMOL in SODIUM CHLOR 0.9% 250 ML INJ 240 ML IV PRN (19:00)
[2016-10-03] MEDS ORDERED: ONDANSETRON HCL 4 MG/2 ML VIAL IV PRN (19:00)
[2016-10-03] MEDS ORDERED: MAGNESIUM SULFATE INJ 2 GM in SODIUM CHLORIDE 0.9% INJ 96 ML IV PRN (19:00)
[2016-10-03] MEDS ORDERED: POTASSIUM CHLOR 20 MEQ PREMIX 100 ML IV PRN ×2 (19:00)
[2016-10-03] MEDS ORDERED: POTASSIUM CHLORIDE 25 MEQ EFFERVESCENT TAB PO PRN (19:00)
[2016-10-03] MEDS ORDERED: LACTULOSE SYRUP 20 GM/30 ML CUP PO PRN (19:00)
[2016-10-03] MEDS ORDERED: MIDAZOLAM HCL 2 MG/2 ML VIAL IV PRN (19:00)
[2016-10-03] MEDS ORDERED: POTASSIUM PHOSPHATE MONOBASIC 500 MG TAB PO PRN (19:00)
[2016-10-03] MEDS ORDERED: POTASSIUM CHLOR 40 MEQ PREMIX 100 ML IV PRN ×2 (19:00)
[2016-10-03] MEDS ORDERED: VECURONIUM BROMIDE 10 MG VIAL IV PUSH ONE (19:00)
[2016-10-03] MEDS ORDERED: MAGNESIUM SULFATE INJ 4 GM in SODIUM CHLORIDE 0.9% INJ 92 ML IV PRN (19:00)
[2016-10-03] MEDS ORDERED: MISCELLANEOUS NURSING INFORMATION XX SCH (19:00)
[2016-10-03] MEDS ORDERED: MAGNESIUM OXIDE 400 MG TAB PO PRN (19:00)
[2016-10-03] MEDS ORDERED: BISACODYL 10 MG SUPP RECTAL PRN (19:00)
[2016-10-03] MEDS ORDERED: ACETAMINOPHEN 325 MG TAB PO PRN (19:00)
[2016-10-03] MEDS ORDERED: SENNOSIDES 8.6 MG TAB PO PRN (19:00)
[2016-10-03] MEDS ORDERED: MAGNESIUM HYDROXIDE SUSP 30 ML CUP PO PRN (19:00)
--- NOTE | 2016-10-03 19:06 | HHI.HP ---
[facility] Service Critical Care Medicine Primary Care Physician Kuldeep Wilcox, DO Admission Diagnosis respiratory failure, hypoxia, leukopenia, myelodysplastic syndrome Diagnosis: Travel History International Travel<30 Days: No Contact w/Intl Traveler <30 Da: No Traveled to Known Affected Are: No History of Present Illness Patient is intubated and unable to provide history. History was obtained by review of the EMR, discussion with the ED physician, discussion with patient's sister. 66-year-old female with past medical history of myelodysplastic disorder (dx'd ~ 10 yrs ago, followed by Dr. Mcclain, on [facility]) , COPD (NOT requiring home O2), diabetes mellitus, Bipolar disorder, remote history of drug abuse and alcoholism who presented to [facility] emergency department for evaluation of hypoxia and hypotension. She was in her oncologist office and sats were 82% on RA and blood pressure was in the 80s. Per EVAC sats were 88% on room air. She was placed on 2 L nasal cannula and sats were in the 90s. Apparently patient has a baseline blood pressure in the 90s. She has dealt with a cough for about 3 weeks. About a week ago she was prescribed azithromycin. Reportedly her cough is now productive of green sputum. She has not been febrile. ED workup revealed that she was in acute hypercapnic respiratory failure with pH 7.26/PaCO2 of 66/PaO2 of 83/bicarbonate of 29 on 2 L nasal cannula. She was placed on BiPAP 16/8 and was tolerating well. After one hour on BiPAP a repeat ABG showed pH of 7.23/PaCO2 of 68/PaO2 of 477 and she agreed to intubation by ED provider. She underwent CT pulmonary angiogram that was negative for pulmonary embolism. Her lactic acid is 0.6. Troponin is less than 0.02. She is pancytopenic with white blood cell count of 1.8, ANC 936, hemoglobin 9.5, platelets 56. Her BP was initially 114/57-131/61 in the ED when on BiPAP. After she was intubated and placed on propofol she was hypotensive with systolics in the high 80s to low 90s. Propofol was discontinued and she was placed on a Versed drip at 3 mg per hour. She was bolused 2 L normal saline. When I arrived to evaluate her in the ED she was not well sedated, intermittently biting on tube, wheezing, airtrapping with autoPEEP on vent. ABG had just been obtained and was 7.19//105. Vent was adjusted by decreasing respiratory rate and she was sedated with fentanyl bolus and drip, versed bolus. Given vecuronium 10 mg IV. 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 PMD is Dr. Wilcox in [facility] oncologist is Dr. Tim Mcclain Past Surgical History Bowel obstruction due to diverticulitis - exploratory laparoscopy with lysis of adhesions, partial bowel small bowel resection and ileostomy06/27/10 (Dr. Barrios) Ileostomy reversal Mastoidectomy in childhood Bilateral tubal ligation ORIF mandible Appendectomy Tonsillectomy Reported Medications Lisinopril 5 mill grams by mouth daily Lyrica 100 mg po bid Citalopram 40 mg's by mouth daily Trazodone 50 mill grams by mouth daily at bedtime Abilify 20 mg by mouth daily Xanax 1 mill grams by mouth 3 times a day when necessary anxiety Albuterol 2 puffs inhaled 3 times a day when necessary shortness of breath Symbicort Budesonide 160/Formoterol 4.5 mcg 1-2 puffs inhaled every 12 hours as needed Linagliptin 5 mill grams by mouth daily Glipizide ER 5 mill grams by mouth twice a day Simvastatin 20 mill grams by mouth daily at bedtime Lortab 10/325 one by mouth 3 times a day when necessary pain Omeprazole 20 mg by mouth daily Potassium chloride 10 mEq by mouth daily at bedtime HCTZ 25 mg by mouth every other day as needed for edema Family History Mother at age 83 from lung cancer Social History She has smoked a pack of cigarettes per day since age 20. She has been cutting back and is currently at about a half a pack a week She previously has a history of alcoholism. Her sister was unsure how much she used to drink or for how long she drank. She states she quit drinking many years ago and had been to rehabilitation in the past She has a history of drug abuse. She has used marijuana. Her sister is unsure what other drugs she has used but did not believe that she has used IV drugs She lives alone She is . Reportedly she does not have a living will She has 3 sons who are named NathanielTim Justino. Justino was present in the ED. Physical Exam Vital Signs Vital Signs Date Time Temp Pulse Resp B/P Pulse Ox O2 Delivery O2 Flow Rate FiO2 10/03/16 18:44 98 50 10/03/16 17:30 100 50 10/03/16 15:12 100 BiPAP 10/03/16 14:54 100 100 10/03/16 14:25 14 95 Nasal Cannula 2 10/03/16 14:13 97.7 54 12 114/57 95 Physical Exam Drips: Versed 3 mg/h GENERAL: Well-nourished, well-developed patient who is orotracheally intubated, sedated. SKIN: Warm and dry, adequately perfused. HEAD: Atraumatic. Normocephalic. EYES: Pupils equal and round, 2 mm and sluggishly reactive bilaterally. She is tearing.. No scleral icterus. No injection or drainage. ENT: No nasal bleeding or discharge. Mucous membranes pink and moist. NECK: Trachea midline. No JVD. CARDIOVASCULAR: Sinus bradycardia with rate in the 50s on the monitor.. No murmurs rubs or gallops. RESPIRATORY: 7.[address] She is intermittently biting the tube and getting inadequate volumes. Once sedated and getting adequate volumes she had autoPEEP noted on vent. Respiratory rate decreased and patient then synchronous and getting adequate volume. Has bilateral expiratory wheeze. No Rales or rhonchi. GASTROINTESTINAL: Abdomen soft, non-tender, nondistended. There is a scar in mid abdomen. There is no ileostomy scar in right abdomen that is well-healed. Bowel sounds are hypoactive. : Hawkins is in place with yellow urine output. MUSCULOSKELETAL: Extremities without clubbing, cyanosis, or edema. No obvious deformities. NEUROLOGICAL: Opens eyes and sits up intermittently. Was moving all extremities without focal deficit. Did not follow commands when I evaluated post-intubation and sedation. Not able to hold all sedation to assess neurologic status due to respiratory condition and severe vent dyssynchrony Laboratory Laboratory Tests Test 10/03/16 10/03/16 10/03/16 10/03/16 14:32 14:35 15:55 16:15 Blood Gas Puncture Site RT RADIAL LT RADIAL Blood Gas Patient Temperature 98.6 98.6 Blood Gas HCO3 29 27 Blood Gas Base Excess 2.3 0.6 Blood Gas Oxygen Saturation 88 94 Arterial Blood pH 7.26 7.23 Arterial Blood Partial 66 68 Pressure CO2 Arterial Blood Partial 83 477 Pressure O2 Arterial Blood Oxygen Content 11.4 13.3 Arterial Blood 7.2 5.0 Carboxyhemoglobin Arterial Blood Methemoglobin 0.9 0.7 Blood Gas Hemoglobin 9.1 9.1 Oxygen Delivery Device NASAL CANNULA BIPAP Blood Gas Liter Flow 2 White Blood Count 1.8 Red Blood Count 3.00 Hemoglobin 9.5 Hematocrit 28.4 Mean Corpuscular Volume 94.5 Mean Corpuscular Hemoglobin 31.5 Mean Corpuscular Hemoglobin 33.4 Concent Red Cell Distribution Width 20.3 Platelet Count 56 Mean Platelet Volume 10.6 Neutrophils (%) (Auto) 60.0 Lymphocytes (%) (Auto) 27.2 Monocytes (%) (Auto) 9.9 Eosinophils (%) (Auto) 1.8 Basophils (%) (Auto) 1.1 Neutrophils # (Auto) 1.1 Lymphocytes # (Auto) 0.5 Monocytes # (Auto) 0.2 Eosinophils # (Auto) 0.0 Basophils # (Auto) 0.0 CBC Comment AUTO DIFF Differential Total Cells 100 Counted Neutrophils % (Manual) 49 Band Neutrophils % 3 Lymphocytes % 34 Monocytes % 10 Eosinophils % 3 Neutrophils # (Manual) 1.0 Metamyelocytes 1 Differential Comment FINAL DIFF MANUAL Platelet Estimate LOW Platelet Morphology Comment NORMAL Prothrombin Time 11.0 Prothromb Time International 1.0 Ratio Activated Partial 28.2 Thromboplast Time Sodium Level 141 Potassium Level 3.8 Chloride Level 107 Carbon Dioxide Level 30.5 Anion Gap 4 Blood Urea Nitrogen 13 Creatinine 0.88 Estimat Glomerular Filtration 65 Rate Random Glucose 83 Lactic Acid Level 0.6 Calcium Level 7.8 Magnesium Level 1.9 Total Bilirubin 0.3 Aspartate Amino Transf 13 (AST/SGOT) Alanine Aminotransferase 15 (ALT/SGPT) Alkaline Phosphatase 81 Total Creatine Kinase 74 Troponin I LESS THAN 0.02 Total Protein 6.4 Albumin 3.0 Blood Gas Ventilator Setting 16/8/RATE 12 Blood Gas Inspired Oxygen 100 Urine Color YELLOW Urine Turbidity CLEAR Urine pH 5.0 Urine Specific [place] 1.011 Urine Protein NEG Urine Glucose (UA) NEG Urine Ketones NEG Urine Occult Blood NEG Urine Nitrite NEG Urine Bilirubin NEG Urine Urobilinogen LESS THAN 2.0 Urine Leukocyte Esterase NEG Urine RBC LESS THAN 1 Urine WBC 1 Urine Squamous Epithelial 2 Cells Urine Amorphous Sediment RARE Urine Bacteria RARE Urine Hyaline Casts 7 Urine Mucus FEW Microscopic Urinalysis Comment CATH-CULTURE IND Test 10/03/16 18:30 Blood Gas Puncture Site RT RADIAL Blood Gas Patient Temperature 98.6 Blood Gas HCO3 24 Blood Gas Base Excess -2.9 Blood Gas Oxygen Saturation 93 Arterial Blood pH 7.19 Arterial Blood Partial 66 Pressure CO2 Arterial Blood Partial 106 Pressure O2 Arterial Blood Oxygen Content 11.8 Arterial Blood 2.7 Carboxyhemoglobin Arterial Blood Methemoglobin 0.8 Blood Gas Hemoglobin 8.8 Oxygen Delivery Device PRVC Blood Gas Ventilator Setting 18/500/5 Blood Gas Inspired Oxygen 50 Date/Time Procedure Status Source Growth 10/03/16 16:15 Urine Culture Worksheet Urine Catheterized Urine Pending 10/03/16 14:45 Aerobic Blood Culture Received Blood Peripheral Pending 10/03/16 14:45 Anaerobic Blood Culture Received Blood Peripheral Pending Result Diagram: 10/03/16 1435 10/03/16 1435 Assessment and Plan Assessment and Plan NEURO: Fentanyl for now the sedation Versed boluses as needed for sedation. Would replace Versed drip with propofol drip if blood pressure will tolerate as versed has higher risk of delirium. Target RASS -2 Chronic hip pain Continue Lortab 10/325 by mouth 3 times a day as needed Bipolar disorder Anxiety Insomnia Continue Abilify 20 mg by mouth twice a day For now have held citalopram 40 mg by mouth daily, trazodone 50 mg by mouth daily at bedtime, Xanax 1 mg by mouth 3 times a day, Peripheral neuropathy For now have held Lyrica 100 mg by mouth twice a day Elevated carboxyhemoglobin level Carboxyhemoglobin of 7.2 is slightly higher than I would expect with her reported smoking of a half a pack of cigarettes per day. It has down trended to 5. This does not affect anything about her management, however will want to discuss with family to determine if any issues with home environment. Obviously would not expect her to be using heaters/ fireplace in the middle of summer. Remote history of alcohol abuse History of drug use (Marijuana, cocaine) Hard of hearing RESP: Acute hypercapnic respiratory failure Acute COPD exacerbation Tobacco abuse Duoneb q20 min x3 now. DuoNeb every 6 hours. Albuterol every 2 hours as needed. Solu-Medrol 60 g IV every 6 hours. Sputum culture ordered. Antibiotics as per below CT chest 10/03/16no pulmonary embolism. Coronary atherosclerotic disease is present. Lungs are clear except for mild bibasilar atelectasis Home medication is Symbicort 160/4.5 one to 2 puffs inhaled every 12 hours Vent Bundle. Daily SBT CV: Now with hypotension may be sedation related and secondary to airtrapping. Monitor hemodynamics. Lactic acid normal. Monitor urine output is marker perfusion. She received 2 L normal saline bolus in the ED. Continue NS at 125 L per hour. Will use Levophed as needed to maintain mean arterial pressure greater than 65. Hyperlipidemia Formulary substitution for her home simvastatin with pravastatin 40 mg by mouth daily at bedtime. Hypertension Hold home medications as she is currently hypotensive: lisinopril 5 mg by mouth daily, HCTZ 25 mg every other day GI: GERD History of diverticulitis History of bowel obstruction secondary to diverticulitis, partial small bowel resection, ileostomy. Now status post ileostomy reversal. History of appendectomy OG tube in place to low intermittent wall suction. Initiate enteral feeds in am if not extubating. Home omeprazole on hold, on Protonix. FEN/RENAL: Creatinine is normal. Hawkins is in place. Monitor intake and output closely as marker of perfusion. Monitor electrolytes. Replace electrolytes as indicated per ICU electrolyte replacement protocol. Received IV contrast 10/03. Avoid nephrotoxins. ID: Acute COPD exacerbation with sputum production Neutropenia, Follow-up blood cultures 2 sets. Send sputum culture, Influenza screen. Cath Ua with rare bacteria otherwise negative for markers of infection. Follow- up urine culture Levaquin 750 mg IV every 24 hours. Cefepime 2 g IV every 8 hours. HEME: Myelodysplastic disorder, On Vidaza Pancytopenia Neutropenia ANC [address] Mcclain. He states no Neupogen needed at this time. ENDO: Diabetes mellitus Hold home meds: Linagliptin 5 mg po daily and Glipizide ER 5 mg po bid. Low dose insulin sliding scale with bedside glucose q6 hours. PROPH: Lovenox 40 mg subcutaneous x1 given for DVT prophylaxis. Will hold on further doses for now in case platelets drop <50. Protonix 40 mg IV daily for stress ulcer prophylaxis. ACCESS: Right IJ central venous line placement 10/03 #1 Reportedly patient does not have a living will or designated healthcare surrogate. She has 3 sons who would share medical decision making while she is incapacitated (Tim Armstrong, Justino) Patient agreed to intubation. She is currently not capacitated for medical decision making. Patient's son Justino and sister, Patricia Koch were updated at bedside multiple times. Patricia is a retired nurse. She states her sister would probably want to be DNR for pulseless arrest but she knows decision is up to sons while patient is incapacitated. Justino wanted to speak to his brothers. Patient is FULL CODE. Sister states "I would only shock her one time, I don't think she would really want CPR". Discussed with Dr. Ramsey and Dr. Mcclain. Critical care time 60 minutes exclusive of separately billable procedures. Kesha Boswell MD Oct 03, 2016 19:06
[2016-10-03] MEDS: INSULIN ASPART SUPPLEMENTAL SCALE SQ SCH (19:15)
[2016-10-03] MEDS ORDERED: DEXTROSE 50% IN WATER 50 ML VIAL(D50) IV PRN (19:15)
[2016-10-03] MEDS ORDERED: GLUCAGON 1 MG/ML VIAL OTHER PRN (19:15)
--- NOTE | 2016-10-03 19:41 | RADRPT ---
EXAM DATE/TIME: 10/03/2016 19:12 [facility] COMPARISON: CHEST SINGLE AP, October 03, 2016, 14:24. INDICATIONS : Post intubation. MEDICAL HISTORY : Diabetes mellitus type 1. Chronic obstructive pulmonary disease. Leukemia SURGICAL HISTORY : Appendectomy. Tubal ligation ENCOUNTER: Subsequent ACUITY: 1 day PAIN SCORE: Non-responsive. LOCATION: Bilateral chest FINDINGS: Endotracheal tube is identified in the tip terminates 1.8 cm above the dheeraj. Enteric tube coiled in the stomach. No consolidation or effusion. Heart size normal. CONCLUSION: Endotracheal tube satisfactory position. Clifford Das MD on October 03, 2016 at 19:39 Board Certified Radiologist. This report was verified electronically.
[2016-10-03] MEDS: CHLORHEXIDINE 0.12% (ORAL KIT) 15 ML CUP MT SCH (20:00)
[2016-10-03] MEDS: RESP: ALBUTEROL 2.5 MG/IPRATROPIUM 0.5 MG NEB (SCH) INH (20:42)
[2016-10-03 20:44] LABS: BLOOD GAS CARBOXYHEMOGLOBIN 2.3 % (0-4); BLOOD GAS HCO3 24 mmol/L (22-26); BLOOD GAS METHEMOGLOBIN 0.7 % (0-2); BLOOD GAS O2 HGB SATURATION 96 % (90-100); BLOOD GAS OXYGEN CONTENT 12.6 Vol % (12.0-20.0); BLOOD GAS PCO2 45 mmHg (38-42); BLOOD GAS PO2 154 mmHG (61-120); BLOOD GAS TOTAL HGB 9.1 G/DL (12.0-16.0); CRITICAL VALUE NO; DRAW SITE RT RADIAL; FIO2 50 %; NUMBER OF ARTERIAL PUNCTURES 1; OXYGEN DEVICE VENTILATOR; STAT NO; TEMP CORR TO 98.6; ULNAR PULSE PRESENT
--- NOTE | 2016-10-03 20:54 | PD.PROCEDR ---
Central Line Procedure DATE: 09/23/16 CENTRAL LINE PLACEMENT: Right internal jugular vein. INDICATION: Central venous access CONSENT Informed consent for procedure was obtained from patients son after discussion of risks, benefits, alternatives. DESCRIPTION OF THE PROCEDURE The patient was placed in supine position, Trendelenburg. The skin was cleansed with Chloraprep 3. Additional barrier precautions included large sterile drape, sterile gloves, sterile gown, face mask, and hat. 1 % lidocaine was used for local anesthesia. Under direct ultrasound guidance and on single attempt, the vein was accessed with an introducer needle. The guide wire was advanced and the tract was dilated. Using Seldinger technique a 7 Wolof 20 cm antimicrobial coated triple-lumen catheter was advanced to a depth of 18 centimeters. The guide wire was removed. All ports had good return of dark venous blood and flushed easily with saline. The central line was secured with 2.0 silk. A sterile dressing with antibiotic disc was applied. ESTIMATED BLOOD LOSS: Minimal COMPLICATIONS: No apparent complications. STAT chest x-ray is pending Kesha Boswell MD Oct 03, 2016 20:53
[2016-10-03] MEDS ORDERED: ENOXAPARIN SODIUM 40 MG/0.4 ML SYRINGE SQ SCH (21:00)
--- NOTE | 2016-10-03 21:30 | RADRPT ---
EXAM DATE/TIME: 10/03/2016 21:09 [facility] COMPARISON: CHEST SINGLE AP, October 03, 2016, 19:12. INDICATIONS : Post central line placement. MEDICAL HISTORY : Diabetes mellitus type I. Chronic obstructive pulmonary disease. Leukemia SURGICAL HISTORY : Appendectomy. Tubal ligation ENCOUNTER: Subsequent ACUITY: 1 day PAIN SCORE: Non-responsive. LOCATION: Bilateral chest FINDINGS: Right jugular line tip overlies the SVC. Heart size mildly prominent. No consolidation. Mild intersti tial prominence. Endotracheal tube terminates 2 cm above the dheeraj. Enteric tube coiled in the stoma ch. CONCLUSION: Mild interstitial prominence. Right jugular line tip as above. I do not see a pneumothorax. Clifford Das MD on October 03, 2016 at 21:28 Board Certified Radiologist. This report was verified electronically.
[2016-10-03] MEDS: DOCUSATE SODIUM 50 MG/SENNA 8.6 MG TAB PO SCH (21:47)
[2016-10-03] MEDS: PRAVASTATIN SOD 40 MG TAB PO SCH (21:47)
[2016-10-03] MEDS: methylPREDNISolone SOD SUCC 125 MG/2 ML VIAL IV PUSH SCH (21:47)
[2016-10-03] MEDS: CHLORHEXIDINE GLUCONATE 2 % 1 PACK (2 CLOTHS) TOP SCH (21:48)
[2016-10-03] MEDS: CEFEPIME INJ 2,000 MG in SODIUM CHLORIDE 0.9% INJ 100 ML IV SCH (21:48)
[2016-10-03] MEDS: LEVOFLOXACIN 750 MG PREMIX INJ 150 ML IV SCH (21:48)
[2016-10-03] MEDS: SODIUM CHLORIDE 0.9% FLUSH 10 ML FLUSH IV FLUSH SCH (21:48)
[2016-10-03] MEDS: RESP: ALBUTEROL 2.5 MG/IPRATROPIUM 0.5 MG NEB (SCH) NEB ×3 (23:00→23:40)
[2016-10-04] VITALS (17 sets, daily range): BP systolic 109–195; BP diastolic 55–82; PULSE 47–88; RESP 12–26; TEMP 97.6–98.9; O2SAT 93–100
[2016-10-04] MEDS ORDERED: PROPOFOL 1000 MG/100 ML INJ 100 ML ONE (00:41)
[2016-10-04] MEDS: PROPOFOL 1000 MG/100 ML INJ 100 ML IV SCH ×2 (01:06→04:42)
[2016-10-04] MEDS: INSULIN ASPART SUPPLEMENTAL SCALE SQ SCH ×4 (01:07→19:15)
[2016-10-04] MEDS: SODIUM CHLOR 0.9% 1000 ML INJ 1,000 ML IV SCH ×2 (02:54→18:54)
[2016-10-04] MEDS: RESP: ALBUTEROL 2.5 MG/IPRATROPIUM 0.5 MG NEB (SCH) INH ×4 (03:40→20:49)
[2016-10-04] MEDS: CEFEPIME INJ 2,000 MG in SODIUM CHLORIDE 0.9% INJ 100 ML IV SCH ×3 (04:42→20:01)
[2016-10-04] MEDS: methylPREDNISolone SOD SUCC 125 MG/2 ML VIAL IV PUSH SCH ×4 (04:42→20:02)
[2016-10-04 05:43] LABS: AUTOMATED NEUTROPHIL # 1.4 TH/MM3 (1.8-7.7); BASOPHIL % 0.5 % (0.0-2.0); EOSINOPHIL % 1.4 % (0.0-4.0); HEMATOCRIT 28.9 % (35.0-46.0); LYMPHOCYTE # 0.6 TH/MM3 (1.0-4.8); MEAN CELL VOLUME 96.4 FL (80.0-100.0); MEAN CORPUSCULAR HEMOGLOBIN 31.2 PG (27.0-34.0); MEAN CORPUSCULAR HGB CONC 32.4 % (32.0-36.0); MONO % 6.9 % (0.0-8.0); NEUT % 65.2 % (16.0-70.0); PLATELET COUNT 41 TH/MM3 (150-450); WHITE BLOOD COUNT 2.2 TH/MM3 (4.0-11.0)
[2016-10-04 05:45] LABS: HEMO FLAGS AUTO DIFF
[2016-10-04 06:04] LABS: ANION GAP 5 MEQ/L (5-15); AST (GOT) 20 U/L (15-37); BICARBONATE 27.1 MEQ/L (21.0-32.0); BLOOD UREA NITROGEN 9 MG/DL (7-18); CHLORIDE 110 MEQ/L (98-107); GLOMERULAR FILTRATION RATE 75 ML/MIN (>89); MAGNESIUM 1.7 MG/DL (1.5-2.5); POTASSIUM 3.6 MEQ/L (3.5-5.1); SODIUM (NA) 142 MEQ/L (136-145)
[2016-10-04 06:08] LABS: ALKALINE PHOSPHATASE 75 U/L (45-117); ALT (GPT) 15 U/L (10-53); TOTAL BILIRUBIN ADULT 0.4 MG/DL (0.2-1.0)
--- NOTE | 2016-10-04 06:40 | RADRPT ---
EXAM DATE/TIME: 10/04/2016 04:47 [facility] COMPARISON: CHEST SINGLE AP, October 03, 2016, 21:09. INDICATIONS : Short of breath. MEDICAL HISTORY : Diabetes mellitus type I. Chronic obstructive pulmonary disease. Leukemia SURGICAL HISTORY : Appendectomy. Tubal ligation ENCOUNTER: Subsequent ACUITY: 1 day PAIN SCORE: 0/10 LOCATION: Bilateral chest FINDINGS: The support devices remain in place. There continues to be a mild interstitial prominence involving b oth lung brush. No new or focal areas of parenchymal consolidation. The heart size is stable. There are no pleural effusions. No evidence of pneumothorax. No significant change is compared to prior juan dy. CONCLUSION: No significant interval change. Fam Tenorio MD on October 04, 2016 at 6:38 Board Certified Radiologist. This report was verified electronically.
[2016-10-04 08:04] LABS: BANDS 20 % (0-6); BASOPHILS 1 % (0-2); EOSINOPHILS 2 % (0-4); NEUTROPHIL # MANUAL DIFF 1.2 TH/MM3 (1.8-7.7); POLYS (SEG NEUTROPHILS) 36 % (16-70); WBC DIFF SAMPLE 100
[2016-10-04 08:05] LABS: ACANTHOCYTES 1+ (NORMAL); KERATOCYTES OCC (NORMAL); OVALOCYTES 1+ (NORMAL); PLATELET ESTIMATE SMEAR LOW (NORMAL); PLATELET MORPHOLOGY NORMAL (NORMAL); SCAN/DIFF FINAL DIFF MANUAL; TOXIC GRANULATION 2+ (NORMAL)
--- NOTE | 2016-10-04 08:56 | EKG ---
Date Performed: 10/03/2016 Time Performed: 21:43:50 PTAGE: 66 years EKG: SINUS BRADYCARDIA BORDERLINE ECG PREVIOUS TRACING : 10/03/2016 14.43 DOCTOR: Giorgi Benz Interpretating Date/Time 10/04/2016 08:55:46
[2016-10-04] MEDS: PANTOPRAZOLE SODIUM 40 MG VIAL IV SCH (09:10)
[2016-10-04] MEDS: DOCUSATE SODIUM 50 MG/SENNA 8.6 MG TAB PO SCH ×2 (09:12→20:02)
--- NOTE | 2016-10-04 09:54 | EKG ---
Date Performed: 10/03/2016 Time Performed: 14:43:09 PTAGE: 66 years EKG: SINUS BRADYCARDIA BORDERLINE ECG INTERPRETATION BASED ON A DEFAULT AGE OF 42 YEARS PREVIOUS TRACING : 01/05/2016 16.24 DOCTOR: Giorgi Benz Interpretating Date/Time 10/04/2016 09:52:35
--- NOTE | 2016-10-04 10:39 | MB ---
cc: MYKEL MARAVILLA DATE OF CONSULTATION: 10/04/2016 REASON FOR CONSULTATION Patient with myelodysplasia, pancytopenia and respiratory failure. PATIENT PROFILE The patient is a 66-year-old white female. She is , was once. She has three children, all sons. She was born in [place]. She lives alone and is independent. She has struggled all her life with a number of social issues. She has a history of bipolar disorder which is under control. She had smoked two packs of cigarettes per day for almost 40 years but is now at least by history down to three cigarettes a day. She has been an alcoholic in the past but has had no alcohol for a long period of time. She has a history of crack cocaine use in the past as well as marijuana but has not been using any drugs. HISTORY OF PRESENT ILLNESS The patient is well-known to me. I originally saw her due to progressive anemia. She had a bone marrow aspirate and biopsy dating back to 11/02/2006 showing hypercellular marrow with trilineage hyperplasia. She was found to have a myelodysplastic syndrome. She developed severe neutropenia. She was treated successfully with Vidaza over many years. When the Vidaza is stopped the cytopenias worsen and become life-threatening. Of recent she has received Vidaza Sunday through Sunday 75 mg per meter squared subcu for five consecutive days, repeated every 4-5 weeks. She has received a single Neupogen injection once a week to help with the neutrophil count and this has been successful. She has been stable and we have had no significant intervening problems in terms of infections, bleeding or failure to thrive. Yesterday the patient went to the oncology center for her Vidaza shot. I was contacted because O2 sats were 84-86% and her blood pressure systolic was 80. She normally runs systolic blood pressure of about 90-100. She was then sent to the emergency room. She was found to be in respiratory failure. A CT angiogram of the chest was done on 10/03/2016. It shows emphysema and bibasilar atelectasis. There is no pulmonary emboli and there is no effusion or significant infiltrates or evidence of pneumonia. She is awake and currently intubated. PAST SURGICAL HISTORY 1. Appendectomy. 2. Fracture of the jaw. 3. Large bowel surgery for diverticular disease approximately [address] Barrios. 4. Operation left ear. 5. Tonsillectomy. 6. Tubal ligation. PAST MEDICAL HISTORY 1. Myelodysplasia diagnosed in 2006 undergoing treatment with Vidaza. 2. Osteoporosis. 3. History of alcohol abuse. 4. History of tobacco abuse. 5. History of drug abuse including cocaine and marijuana in the past. 6. History of migraine headaches. 7. Diverticulitis which required an operation. 8. Diabetes mellitus. 9. Bipolar disorder. 10.Arthritis. 11.Asthma. MEDICATIONS Medications prior to admission: 1. Albuterol. 2. Xanax. 3. Celexa. 4. Glipizide. 5. Hydrochlorothiazide. 6. Oxycodone/acetaminophen. 7. Trazodone. 8. ? Abilify. ALLERGIES No known allergies. FAMILY HISTORY Noncontributory. REVIEW OF SYSTEMS A review of systems is not immediately obtainable. I saw her five days prior to admission and if I use the review of systems from that time she was doing well, she had fatigue, mild exertional shortness of breath, occasional arthritic discomfort. She was otherwise well, cheerful and without complaints. LABORATORY STUDIES Current laboratory studies: Hemoglobin 9.4, white count 2200, platelets 41,000, total neutrophil count 1400. Her peripheral smear does not contain any early forms. Electrolytes, BUN and creatinine are unremarkable. Liver function tests are normal. Albumin is 2.8. PHYSICAL EXAMINATION GENERAL: Physical examination reveals a female who is intubated. She is awake and can follow instructions and understand conversation. Other than being intubated she is not in any distress. VITAL SIGNS: Blood pressure 170/70, respiratory rate 18, pulse 80, afebrile. FIO2 is 40%. HEENT: Head is normocephalic. Conjunctiva is normal. No adenopathy. HEART: Regular rhythm. LUNGS: Mostly clear with a few dry rales. BREASTS: Without masses. ABDOMEN: Without hepatosplenomegaly, masses or tenderness. EXTREMITIES: No edema. MUSCULOSKELETAL: No bone pain. NEUROLOGIC: No weakness. Cognition and affect normal for a person who is on a ventilator and is awake and alert. There is no focal weakness. SKIN: Intact. Most recent blood gas 10/03/2016: pH 7.35, PCO2 45, PO2 154. Prior to this she had a blood gas with pH 7.19 and a CO2 of 66. ASSESSMENT AND PLAN 1. The patient has a myelodysplasia responsive to Vidaza. At the present time hemoglobin is adequate at 9.4. She does not need a transfusion. Her white count is 2200 with 1400 neutrophils. She does not need Neupogen. I do give her Neupogen once a week and if the count falls will give her Neupogen. Her platelet count is low at 41,000 but she does not need any platelet support. 2. She has respiratory failure, not clear to me why. I reviewed her CT angiogram from 10/03/2016. There is no pulmonary embolus, pleural effusion, infiltrate or pneumonia. She does have a significant history of smoking two packs a day for 40 years and I believe that her respiratory failure is a consequence of her emphysema but why it has suddenly worsened over three days is unclear. The respiratory failure is being managed by Dr. Boswell. Hopefully she will be extubated today. At some point she will need to have a pulmonary physician in the outpatient setting as this was an unexpected event and I believe reflects significant underlying emphysema. 3. I have ordered a CBC and platelet count for tomorrow but do not anticipate there will be significant changes. MD EARL Perry/YESENIA /10:07 AM /10:25 AM THOR
--- NOTE | 2016-10-04 11:31 | HHI.CCPN ---
Subjective Remarks/Hospital Course Patient is intubated and unable to provide history. History was obtained by review of the EMR, discussion with the ED physician, discussion with patient's sister. 66-year-old female with past medical history of myelodysplastic disorder (dx'd ~ 10 yrs ago, followed by Dr. Mcclain, on Vidaza) , COPD (NOT requiring home O2), diabetes mellitus, Bipolar disorder, remote history of drug abuse and alcoholism who presented to [facility] emergency department for evaluation of hypoxia and hypotension. She was in her oncologist office and sats were 82% on RA and blood pressure was in the 80s. Per EVAC sats were 88% on room air. She was placed on 2 L nasal cannula and sats were in the 90s. Apparently patient has a baseline blood pressure in the 90s. She has dealt with a cough for about 3 weeks. About a week ago she was prescribed azithromycin. Reportedly her cough is now productive of green sputum. She has not been febrile. ED workup revealed that she was in acute hypercapnic respiratory failure with pH 7.26/PaCO2 of 66/PaO2 of 83/bicarbonate of 29 on 2 L nasal cannula. She was placed on BiPAP 16/8 and was tolerating well. After one hour on BiPAP a repeat ABG showed pH of 7.23/PaCO2 of 68/PaO2 of 477 and she agreed to intubation by ED provider. She underwent CT pulmonary angiogram that was negative for pulmonary embolism. Her lactic acid is 0.6. Troponin is less than 0.02. She is pancytopenic with white blood cell count of 1.8, ANC 936, hemoglobin 9.5, platelets 56. Her BP was initially 114/57-131/61 in the ED when on BiPAP. After she was intubated and placed on propofol she was hypotensive with systolics in the high 80s to low 90s. Propofol was discontinued and she was placed on a Versed drip at 3 mg per hour. She was bolused 2 L normal saline. When I arrived to evaluate her in the ED she was not well sedated, intermittently biting on tube, wheezing, airtrapping with autoPEEP on vent. ABG had just been obtained and was 7.19/66/105. Vent was adjusted by decreasing respiratory rate and she was sedated with fentanyl bolus and drip, versed bolus. Given vecuronium 10 mg IV. SUBJ 10/04/16: Patient is intubated off sedation. She is tolerating CPAP trials well. We'll proceed with weaning parameters for possible extubation Objective Vital Signs Date Time Temp Pulse Resp B/P Pulse Ox O2 Delivery O2 Flow Rate FiO2 10/04/16 09:23 98 40 10/04/16 06:00 47 10/04/16 04:00 97.8 18 178/72 10/03/16 19:15 BiPAP 10/03/16 14:25 2 Intake and Output 10/03/16 10/03/16 10/03/16 07:59 15:59 23:59 Intake Total 30 ml Output Total 450 ml Balance -420 ml Result Diagram: 10/04/16 0430 10/04/16 0430 Other Results Microbiology Date/Time Procedure Status Source Growth 10/04/16 00:45 Influenza Types A,B Antigen (MARGARETH) - Final Complete Nasal Washing NEGATIVE FOR FLU A AND B ANTIGEN.... Laboratory Tests Test 10/03/16 10/03/16 10/03/16 10/03/16 14:32 15:55 18:30 20:00 Blood Gas Puncture Site RT RADIAL LT RADIAL RT RADIAL RT RADIAL Blood Gas Patient Temperature 98.6 98.6 98.6 98.6 Blood Gas HCO3 29 mmol/L 27 mmol/L 24 mmol/L 24 mmol/L (22-26) (22-26) (22-26) (22-26) Blood Gas Base Excess 2.3 mmol/L 0.6 mmol/L -2.9 mmol/L -1.0 mmol/L (-2-2) (-2-2) (-2-2) (-2-2) Blood Gas Oxygen Saturation 88 % (90-100) 94 % (90-100) 93 % (90-100) 96 % (90- 100) Arterial Blood pH 7.26 7.23 7.19 7.35 (7.380-7.420) (7.380-7.420) (7.380-7.420) (7.380-7.420) Arterial Blood Partial 66 mmHg (38-42) 68 mmHg (38-42) 66 mmHg (38-42) 45 mmHg ( 38-42) Pressure CO2 Arterial Blood Partial 83 mmHG 477 mmHG 106 mmHG 154 mmHG Pressure O2 (61-120) (61-120) (61-120) (61-120) Arterial Blood Oxygen Content 11.4 Vol % 13.3 Vol % 11.8 Vol % 12.6 Vol % (12.0-20.0) (12.0-20.0) (12.0-20.0) (12.0-20.0) Arterial Blood 7.2 % (0-4) 5.0 % (0-4) 2.7 % (0-4) 2.3 % (0-4) Carboxyhemoglobin Arterial Blood Methemoglobin 0.9 % (0-2) 0.7 % (0-2) 0.8 % (0-2) 0.7 % (0-2) Blood Gas Hemoglobin 9.1 G/DL 9.1 G/DL 8.8 G/DL 9.1 G/DL (12.0-16.0) (12.0-16.0) (12.0-16.0) (12.0-16.0) Oxygen Delivery Device NASAL CANNULA BIPAP PRVC VENTILATOR Blood Gas Liter Flow 2 L/M Blood Gas Ventilator Setting 16/8/RATE 12 18/500/5 Blood Gas Inspired Oxygen 100 % 50 % 50 % Objective Remarks Drips: Versed 3 mg/h-on hold GENERAL: Well-nourished, well-developed patient who is orotracheally intubated SKIN: Warm and dry, adequately perfused. HEAD: Atraumatic. Normocephalic. EYES: Pupils equal and round, 2 mm and sluggishly reactive bilaterally. ENT: No nasal bleeding or discharge. Mucous membranes pink and moist. NECK: Trachea midline. No JVD. CARDIOVASCULAR: Sinus bradycardia with rate in the 50s on the monitor.. No murmurs rubs or gallops. RESPIRATORY: 7.[address]. Very mild bilateral wheezing, otherwise clear GASTROINTESTINAL: Abdomen soft, non-tender, nondistended. There is a scar in mid abdomen. There is no ileostomy scar in right abdomen that is well-healed. : Hawkins is in place with yellow urine output. MUSCULOSKELETAL: Extremities without clubbing, cyanosis, or edema. No obvious deformities. NEUROLOGICAL: Patient is off sedation, awake following commands 4 Urinary Catheter: Yes Assessment to: Continue Vascular Central Line Catheter: Yes Assessment to: Continue A/P Assessment and Plan NEURO: Hold all continuos sedation for weaning trials Continue Lortab 10/325 by mouth 3 times a day as needed for chronic hip pain Bipolar disorder Anxiety Insomnia Continue Abilify 20 mg by mouth twice a day Holding citalopram 40 mg by mouth daily, trazodone 50 mg by mouth daily at bedtime, Xanax 1 mg by mouth 3 times a day, Peripheral neuropathy Holding Lyrica 100 mg by mouth twice a day Elevated carboxyhemoglobin level Carboxyhemoglobin of 7.2 is slightly higher than I would expect with her reported smoking of a half a pack of cigarettes per day. It has down trended to 5. Address any issues with home environment. Remote history of alcohol abuse History of drug use (Marijuana, cocaine) Hard of hearing RESP: Acute hypercapnic respiratory failure Acute COPD exacerbation Tobacco abuse s/p Duoneb q20 min x3 now. Continue DuoNeb every 6 hours. Albuterol every 2 hours as needed. Solu-Medrol 60 g IV every 6 hours. Sputum culture ordered. Antibiotics as per below CT chest 10/03/16no pulmonary embolism. Lungs are clear except for mild bibasilar atelectasis Home medication is Symbicort 160/4.5 one to 2 puffs inhaled every 12 hours Vent Bundle. SBT with possible extubation CV: Hypotension -now resolved, no airtrapping She received 2 L normal saline bolus in the ED. Continue NS at 125 L per hour. Hyperlipidemia Formulary substitution for her home simvastatin with pravastatin 40 g by mouth daily at bedtime. Hypertension Hold home medications as she is currently hypotensive: lisinopril 5 mg by mouth daily, HCTZ 25 mg every other day GI: GERD History of diverticulitis History of bowel obstruction secondary to diverticulitis, partial small bowel resection, ileostomy. Now status post ileostomy reversal. History of appendectomy OG tube in place to low intermittent wall suction. Initiate enteral feeds in am if not extubating. Home omeprazole on hold, on Protonix. FEN/RENAL: Creatinine is normal. Hawkins is in place. Monitor intake and output closely as marker of perfusion. Monitor electrolytes. Replace electrolytes as indicated per ICU electrolyte replacement protocol. Received IV contrast 10/03. Avoid nephrotoxins. ID: Acute COPD exacerbation with sputum production Neutropenia, Follow-up blood cultures 2 sets. F/U sputum culture, Influenza screen. Cath UA with rare bacteria otherwise negative for markers of infection. Follow- up urine culture Levaquin 750 mg IV every 24 hours. Cefepime 2 g IV every 8 hours-DC cefepime today HEME: Myelodysplastic disorder, On Vidaza Pancytopenia Neutropenia ANC [address] Mcclain. He states no Neupogen needed at this time. ENDO: Diabetes mellitus Hold home meds: Linagliptin 5 mg po daily and Glipizide ER 5 mg po bid. Low dose insulin sliding scale with bedside glucose q6 hours. PROPH: Lovenox 40 mg subcutaneous x1 given for DVT prophylaxis. Will hold on further doses for now in case platelets drop <50. Protonix 40 mg IV daily for stress ulcer prophylaxis. ACCESS: Right IJ central venous line placement 10/03 #2 Reportedly patient does not have a living will or designated healthcare surrogate. She has 3 sons who would share medical decision making while she is incapacitated (Tim Armstrong, Justino) Patient agreed to intubation. She is currently not capacitated for medical decision making. Patient's son Justino and sister, Patricia Koch were updated at bedside multiple times. Patricia is a retired nurse. She states her sister would probably want to be DNR for pulseless arrest but she knows decision is up to sons while patient is incapacitated. Jutsino wanted to speak to his brothers. Patient is FULL CODE. Sister states "I would only shock her one time, I don't think she would really want CPR". Discussed with Dr. Ramsey and Dr. Mcclain. Level 3 Ivana De Leon MD Oct 04, 2016 11:31
[2016-10-04] MEDS: ACETAMINOPHEN/HYDROcodone 325 MG/10 MG TAB PO PRN (14:29)
[2016-10-04] MEDS ORDERED: hydrALAZINE HCL 20 MG/ML VIAL IV PRN (16:30)
[2016-10-04] MEDS: CHLORHEXIDINE 0.12% (ORAL KIT) 15 ML CUP MT SCH (20:00)
[2016-10-04] MEDS: LEVOFLOXACIN 750 MG PREMIX INJ 150 ML IV SCH (20:01)
[2016-10-04] MEDS: SODIUM CHLORIDE 0.9% FLUSH 10 ML FLUSH IV FLUSH SCH (20:02)
[2016-10-04] MEDS: PRAVASTATIN SOD 40 MG TAB PO SCH (20:02)
[2016-10-05] VITALS (23 sets, daily range): BP systolic 87–141; BP diastolic 59–81; PULSE 57–196; RESP 18–33; TEMP 98.2–98.6; O2SAT 90–98
[2016-10-05] MEDS: INSULIN ASPART SUPPLEMENTAL SCALE SQ SCH ×4 (01:25→18:21)
[2016-10-05] MEDS: ACETAMINOPHEN/HYDROcodone 325 MG/10 MG TAB PO PRN ×3 (01:26→16:21)
[2016-10-05] MEDS: RESP: ALBUTEROL 2.5 MG/IPRATROPIUM 0.5 MG NEB (SCH) INH ×3 (02:56→09:44)
[2016-10-05] MEDS: CHLORHEXIDINE GLUCONATE 2 % 1 PACK (2 CLOTHS) TOP SCH (03:27)
[2016-10-05] MEDS: CEFEPIME INJ 2,000 MG in SODIUM CHLORIDE 0.9% INJ 100 ML IV SCH (03:27)
[2016-10-05] MEDS: methylPREDNISolone SOD SUCC 125 MG/2 ML VIAL IV PUSH SCH ×2 (03:27→08:21)
[2016-10-05] MEDS: SODIUM CHLOR 0.9% 1000 ML INJ 1,000 ML IV SCH (03:28)
[2016-10-05 06:15] LABS: AUTOMATED NEUTROPHIL # 3.2 TH/MM3 (1.8-7.7); HEMATOCRIT 28.5 % (35.0-46.0); LYMPHOCYTE # 0.2 TH/MM3 (1.0-4.8); MEAN CELL VOLUME 93.6 FL (80.0-100.0); MEAN CORPUSCULAR HGB CONC 33.1 % (32.0-36.0); MONO % 1.6 % (0.0-8.0); NEUT % 93.4 % (16.0-70.0); PLATELET COUNT 38 TH/MM3 (150-450); RED BLOOD COUNT 3.04 MIL/MM3 (4.00-5.30); RED CELL DISTRIBUTION WIDTH 19.6 % (11.6-17.2); WHITE BLOOD COUNT 3.4 TH/MM3 (4.0-11.0)
[2016-10-05 07:13] LABS: HEMO FLAGS AUTO DIFF
[2016-10-05] MEDS: CHLORHEXIDINE 0.12% (ORAL KIT) 15 ML CUP MT SCH ×2 (08:00→20:00)
[2016-10-05] MEDS: PANTOPRAZOLE SODIUM 40 MG VIAL IV SCH (08:21)
[2016-10-05] MEDS: DOCUSATE SODIUM 50 MG/SENNA 8.6 MG TAB PO SCH ×2 (08:22→20:07)
[2016-10-05] MEDS: SODIUM CHLORIDE 0.9% FLUSH 10 ML FLUSH IV FLUSH SCH ×2 (08:23→20:07)
[2016-10-05 08:28] LABS: OVALOCYTES 2+ (NORMAL); PLATELET ESTIMATE SMEAR LOW (NORMAL)
[2016-10-05 08:29] LABS: PLATELET MORPHOLOGY ENLARGED (NORMAL); SCAN/DIFF AUTO DIFF CONFIRMED
[2016-10-05] MEDS ORDERED: HYDROCHLOROTHIAZIDE 25 MG TAB PO PRN (10:30)
--- NOTE | 2016-10-05 10:42 | PD.TRANSFR ---
Transfer Summary Admission Date Oct 03, 2016 at 18:15 Admitting Diagnosis respiratory failure, hypoxia, leukopenia, myelodysplastic syndrome Diagnoses: (1) Respiratory failure Diagnosis: Principal (2) COPD with exacerbation Diagnosis: Principal (3) Respiratory acidosis Diagnosis: Principal (4) Pancytopenia Diagnosis: Secondary (5) Myelodysplasia Diagnosis: Secondary (6) Diabetes mellitus type 2 Diagnosis: Secondary (7) COPD (chronic obstructive pulmonary disease) Diagnosis: Secondary (8) Benign essential hypertension Diagnosis: Secondary Transfer Summary/Subjective Patient is intubated and unable to provide history. History was obtained by review of the EMR, discussion with the ED physician, discussion with patient's sister. 66-year-old female with past medical history of myelodysplastic disorder (dx'd ~ 10 yrs ago, followed by Dr. Mcclain, on Vidaza) , COPD (NOT requiring home O2), diabetes mellitus, Bipolar disorder, remote history of drug abuse and alcoholism who presented to [facility] emergency department for evaluation of hypoxia and hypotension. She was in her oncologist office and sats were 82% on RA and blood pressure was in the 80s. Per EVAC sats were 88% on room air. She was placed on 2 L nasal cannula and sats were in the 90s. Apparently patient has a baseline blood pressure in the 90s. She has dealt with a cough for about 3 weeks. About a week ago she was prescribed azithromycin. Reportedly her cough is now productive of green sputum. She has not been febrile. ED workup revealed that she was in acute hypercapnic respiratory failure with pH 7.26/PaCO2 of 66/PaO2 of 83/bicarbonate of 29 on 2 L nasal cannula. She was placed on BiPAP 16/8 and was tolerating well. After one hour on BiPAP a repeat ABG showed pH of 7.23/PaCO2 of 68/PaO2 of 477 and she agreed to intubation by ED provider. She underwent CT pulmonary angiogram that was negative for pulmonary embolism. Her lactic acid is 0.6. Troponin is less than 0.02. She is pancytopenic with white blood cell count of 1.8, ANC 936, hemoglobin 9.5, platelets 56. Her BP was initially 114/57-131/61 in the ED when on BiPAP. After she was intubated and placed on propofol she was hypotensive with systolics in the high 80s to low 90s. Propofol was discontinued and she was placed on a Versed drip at 3 mg per hour. She was bolused 2 L normal saline. When I arrived to evaluate her in the ED she was not well sedated, intermittently biting on tube, wheezing, airtrapping with autoPEEP on vent. ABG had just been obtained and was 7.//105. Vent was adjusted by decreasing respiratory rate and she was sedated with fentanyl bolus and drip, versed bolus. Given vecuronium 10 mg IV. SUBJ 10/04/16: Patient is intubated off sedation. She is tolerating CPAP trials well. We'll proceed with weaning parameters for possible extubation 10/05: Extubated yesterday tolerating well breathing comfortably on nasal cannula. Appears to be in good spirits. Will resume home lisinopril and hydrochlorothiazide, also resume Symbicort Objective Vital Signs Date Time Temp Pulse Resp B/P Pulse Ox O2 Delivery O2 Flow Rate FiO2 10/05/16 09:44 94 Nasal Cannula 3.50 10/05/16 06:00 74 10/05/16 04:00 98.2 21 127/66 10/04/16 09:23 40 Intake and Output 10/04/16 10/04/16 10/05/16 08:00 16:00 00:00 Intake Total 930 ml 860 ml 1880 ml Output Total 425 ml 1200 ml 980 ml Balance 505 ml -340 ml 900 ml Result Diagram: 10/05/16 0550 10/04/16 0430 Other Results Microbiology Date/Time Procedure Status Source Growth 10/04/16 00:45 Influenza Types A,B Antigen (MARGARETH) - Final Complete Nasal Washing NEGATIVE FOR FLU A AND B ANTIGEN.... Objective Remarks GENERAL: Well-nourished, well-developed patient who is sitting in bed SKIN: Warm and dry, adequately perfused. HEAD: Atraumatic. Normocephalic. EYES: Pupils equal and round, 2 mm and sluggishly reactive bilaterally. ENT: No nasal bleeding or discharge. Mucous membranes pink and moist. NECK: Trachea midline. No JVD. CARDIOVASCULAR: S1-S2 normal no murmurs. No murmurs rubs or gallops. RESPIRATORY: Air entry equal bilaterally no wheezes GASTROINTESTINAL: Abdomen soft, non-tender, nondistended. There is a scar in mid abdomen. There is no ileostomy scar in right abdomen that is well-healed. MUSCULOSKELETAL: Extremities without clubbing, cyanosis, or edema. No obvious deformities. NEUROLOGICAL: Alert awake oriented no focal deficits A/P Assessment and Plan NEURO: Discontinued all continuos sedation Chronic hip pain Continue Lortab 10/325 by mouth 3 times a day as needed Bipolar disorder Anxiety Insomnia Continue Abilify 20 mg by mouth twice a day Resume citalopram 40 mg by mouth daily, trazodone 50 mg by mouth daily at bedtime, Ativan when necessary Peripheral neuropathy Resume Lyrica 100 mg by mouth twice a day Elevated carboxyhemoglobin level Carboxyhemoglobin of 7.2 is slightly higher than would expect with her reported smoking of a half a pack of cigarettes per day. It has down trended to 5. This does not affect anything about her management, however will want to discuss with family to determine if any issues with home environment. Remote history of alcohol abuse History of drug use (Marijuana, cocaine) Hard of hearing RESP: Acute hypercapnic respiratory failure Acute COPD exacerbation Tobacco abuse DuoNeb every 6 hours. Albuterol every 2 hours as needed. Solu-Medrol 60 g IV every 6 hours-reduce to 40 q8 Sputum culture ordered. Antibiotics as per below CT chest 10/03/16no pulmonary embolism. Coronary atherosclerotic disease is present. Lungs are clear except for mild bibasilar atelectasis Home medication is Symbicort 160/4.5 one to 2 puffs inhaled every 12 hours- resumed CV: Hypertension Previously hypotensive now resolved Monitor hemodynamics. Lactic acid normal. Monitor urine output is marker perfusion. DC IVF Use hydralazine when necessary for SBP more than 160 Resume home medications lisinopril and hydrochlorothiazide for blood pressure Hyperlipidemia Formulary substitution for her home simvastatin with pravastatin 40 mg by mouth daily at bedtime. GI: GERD History of diverticulitis History of bowel obstruction secondary to diverticulitis, partial small bowel resection, ileostomy. Now status post ileostomy reversal. History of appendectomy ADA diet, by mouth omeprazole will be resumed FEN/RENAL: Creatinine is normal. Hawkins is in place. Monitor intake and output closely as marker of perfusion. Monitor electrolytes. Replace electrolytes as indicated per ICU electrolyte replacement protocol. Received IV contrast 10/03. Avoid nephrotoxins. ID: Acute COPD exacerbation with sputum production Neutropenia, Follow-up blood cultures 2 sets neg, Influenza screen negative Cath Ua with rare bacteria otherwise negative for markers of infection. Follow- up urine culture. Coag neg staph, Send reculture Levaquin 750 mg IV every 24 hours. Cefepime 2 g IV every 8 hours-DC today HEME: Myelodysplastic disorder, On Vidaza Pancytopenia Neutropenia ANC [address] Mcclain. He states no Neupogen needed at this time. ENDO: Diabetes mellitus Hold home meds: Linagliptin 5 mg po daily and Glipizide ER 5 mg po bid. Low dose insulin sliding scale with bedside glucose q6 hours. PROPH: Lovenox 40 mg subcutaneous x1 given for DVT prophylaxis. Will hold on further doses platelets count 38. DC Protonix 40 mg IV daily -continue PO omeprazole ACCESS: Right IJ central venous line placement 10/03 #2 DC today Reportedly patient does not have a living will or designated healthcare surrogate. She has 3 sons who would share medical decision making while she is incapacitated (Tim Armstrong, Justino) Level 2. Consult hospitalist to assume care in a.m.. Transfer to [facility] Ivana De Leon MD Oct 05, 2016 10:42
[2016-10-05] MEDS: ALPRAZolam 1 MG TAB PO PRN (11:08)
[2016-10-05] MEDS: LISINOPRIL 5 MG TAB PO SCH (12:14)
[2016-10-05] MEDS: BUDESONIDE-FORMOTEROL 160/4.5 MCG INHALER INH SCH (13:33)
[2016-10-05] MEDS: methylPREDNISolone SOD SUCC 40 MG/1 ML VIAL IV PUSH SCH (16:21)
--- NOTE | 2016-10-05 17:07 | PD.ONC.PN ---
Subjective Subjective Remarks feeling better. patient with son in room and discussed health issues including his smoking. Objective Data Date Time Temp Pulse Resp B/P Pulse Ox O2 Delivery O2 Flow Rate FiO2 10/05/16 16:00 98.4 75 22 125/71 94 10/05/16 14:01 90 23 87/60 95 10/05/16 14:00 86 32 95 10/05/16 13:31 76 30 138/65 94 10/05/16 13:00 64 20 119/61 95 10/05/16 12:45 67 20 126/61 95 10/05/16 12:00 98.5 76 24 129/64 92 10/05/16 11:30 71 18 102/59 92 10/05/16 11:01 90 30 123/73 92 10/05/16 10:30 173 27 112/72 94 10/05/16 10:01 196 23 122/63 98 10/05/16 09:44 94 Nasal Cannula 3.50 10/05/16 09:30 83 24 129/81 93 10/05/16 09:00 75 25 141/63 91 10/05/16 08:30 89 33 121/66 91 10/05/16 08:21 84 28 121/77 91 10/05/16 08:00 98.6 85 25 90 10/05/16 06:00 74 10/05/16 04:00 98.2 71 21 127/66 92 10/05/16 04:00 71 10/05/16 02:00 73 10/05/16 00:00 78 10/05/16 00:00 98.6 78 18 102/63 93 10/04/16 22:00 81 10/04/16 20:49 93 Nasal Cannula 3.00 10/04/16 20:00 98.9 72 14 123/68 93 10/04/16 20:00 74 10/04/16 18:00 88 10/05/16 10/05/16 10/05/16 07:00 15:00 23:00 Intake Total 850 ml 600 ml Output Total 1050 ml 500 ml Balance -200 ml 100 ml Result Diagram: 10/05/16 0550 10/04/16 0430 Laboratory Results Laboratory Tests Test 10/05/16 05:50 White Blood Count 3.4 TH/MM3 Red Blood Count 3.04 MIL/MM3 Hemoglobin 9.4 GM/DL Hematocrit 28.5 % Mean Corpuscular Volume 93.6 FL Mean Corpuscular Hemoglobin 31.0 PG Mean Corpuscular Hemoglobin 33.1 % Concent Red Cell Distribution Width 19.6 % Platelet Count 38 TH/MM3 Mean Platelet Volume 8.4 FL Neutrophils (%) (Auto) 93.4 % Lymphocytes (%) (Auto) 5.0 % Monocytes (%) (Auto) 1.6 % Eosinophils (%) (Auto) 0.0 % Basophils (%) (Auto) 0.0 % Neutrophils # (Auto) 3.2 TH/MM3 Lymphocytes # (Auto) 0.2 TH/MM3 Monocytes # (Auto) 0.1 TH/MM3 Eosinophils # (Auto) 0.0 TH/MM3 Basophils # (Auto) 0.0 TH/MM3 CBC Comment AUTO DIFF Differential Comment AUTO DIFF CONFIRMED Platelet Estimate LOW Platelet Morphology Comment ENLARGED Ovalocytes 2+ Culture Results Microbiology Date/Time Procedure Status Source Growth 10/03/16 14:35 Aerobic Blood Culture - Preliminary Resulted Blood Peripheral NO GROWTH IN 2 DAYS 10/03/16 14:35 Anaerobic Blood Culture - Preliminary Resulted Blood Peripheral NO GROWTH IN 2 DAYS 10/03/16 14:45 Aerobic Blood Culture - Preliminary Resulted Blood Peripheral NO GROWTH IN 2 DAYS 10/03/16 14:45 Anaerobic Blood Culture - Preliminary Resulted Blood Peripheral NO GROWTH IN 2 DAYS 10/03/16 16:15 Urine Culture - Final Complete Urine Catheterized Urine 10/04/16 00:45 Gram Stain - Final Resulted Sputum Endotracheal 10/04/16 00:45 Sputum Culture - Preliminary Resulted Sputum Endotracheal HEAVY GROWTH NORMAL RESPIRATORY RUSSELL... 10/04/16 00:45 Influenza Types A,B Antigen (MARGARETH) - Final Complete Nasal Washing NEGATIVE FOR FLU A AND B ANTIGEN.... Administered Medications Medications (Trade) Dose Ordered Sig/Bryant Route PRN Reason Start Time Stop Time Status Last Admin Dose Admin Levofloxacin/ Dextrose (Levaquin 750 Mg Premix Inj) 150 ml @ 100 mls/hr Q24H IV 10/03/16 20:00 10/04/16 20:01 Sodium Chloride (NS Flush) 2 ml BID IV FLUSH 10/03/16 21:00 10/05/16 08:23 Pantoprazole Sodium (Protonix Inj) 40 mg DAILY IV 10/04/16 09:00 10/05/16 08:21 Chlorhexidine Gluconate (Chlorhexidine 2% Cloth) 3 pack Taper DAILY@04 TOP 10/04/16 04:00 09/30/17 03:59 10/05/16 03:27 Senna/Docusate Sodium (Mary-Colace) 1 tab BID PO 10/03/16 21:00 10/05/16 08:22 Chlorhexidine Gluconate (Peridex 0.12% Liq) 15 ml BID@08,20 MT 10/03/16 20:00 10/03/16 20:00 Insulin Aspart (NovoLOG SUPPLEMENTAL SCALE) 1 Q6H SQ 10/03/16 19:15 10/05/16 12:14 Acetaminophen/ Hydrocodone Bitart ([place] 10-325 Mg) 1 tab TID PRN PO PAIN 10/03/16 19:15 10/05/16 16:21 Pravastatin Sodium (Pravachol) 40 mg HS PO 10/03/16 21:00 10/04/16 20:02 Aripiprazole (Abilify) 20 mg DAILY OG-TUBE 10/04/16 09:00 10/05/16 08:22 Hydralazine HCl (Apresoline Inj) 20 mg Q4H PRN IV SYSTOLIC BP > 160 mmHg 10/04/16 16:30 10/04/16 16:48 Alprazolam (Xanax) 1 mg TID PRN PO ANXIETY 10/05/16 10:30 10/05/16 11:08 Budesonide/ Formoterol Fumarate (Symbicort 160-4.5 Inh) 2 puff Q12HR INH 10/05/16 10:30 10/05/16 13:33 Lisinopril (Prinivil) 5 mg DAILY PO 10/05/16 10:30 10/05/16 12:14 Methylprednisolone Sodium Succinate (SoluMEDROL INJ) 40 mg Q8H IV PUSH 10/05/16 17:00 10/05/16 16:21 Objective Remarks GENERAL: awake and alert and in no distress. SKIN: Warm and dry. HEAD: Normocephalic. EYES: No scleral icterus. No injection or drainage. NECK: Supple, trachea midline. No JVD or lymphadenopathy. LYMPHATIC: No adenopathy. CARDIOVASCULAR: Regular rate and rhythm without murmurs. RESPIRATORY: Breath sounds equal bilaterally. No accessory muscle use. GASTROINTESTINAL: Abdomen soft, non-tender, nondistended. EXTREMITIES: No cyanosis, or edema. MUSCULOSKELETAL: Adequate muscle tone. NEUROLOGICAL: No obvious focal deficit. Awake, alert, and oriented x3. PSYCHIATRIC: Appropriate mood and affect; insight and judgment normal. Assessment/Plan Assessment 1: patient much better and extubated. I learned today that she is smoking 1 pack of cigarettes per day although in the office she indicated that she was only smoking 3 cigarettes per day. I told her if she continues to smoke a pack a day she will not likely live very long. Her son smokes as well and he was also the victim of my lecture. 2: If possible while she is in hospital it would be reasonable to link her up with a pulmonary md although this can be done as outpatient. 3: myelodysplasia with cytopenias: nothing need be done now. Tim Mcclain MD Oct 05, 2016 17:07
[2016-10-05] MEDS: PRAVASTATIN SOD 40 MG TAB PO SCH (20:07)
[2016-10-05] MEDS: PREGABALIN 100 MG CAP PO SCH (20:07)
[2016-10-05] MEDS: LEVOFLOXACIN 750 MG PREMIX INJ 150 ML IV SCH (20:08)
[2016-10-06] VITALS (8 sets, daily range): BP systolic 109–135; BP diastolic 70–88; PULSE 56–104; RESP 18–20; TEMP 97.5–98.7; O2SAT 93–97
[2016-10-06] MEDS: ALPRAZolam 1 MG TAB PO PRN (00:13)
[2016-10-06] MEDS: methylPREDNISolone SOD SUCC 40 MG/1 ML VIAL IV PUSH SCH ×2 (00:13→09:12)
[2016-10-06] MEDS: traZODone HCL 50 MG TAB PO PRN ×2 (00:13→21:09)
[2016-10-06] MEDS: INSULIN ASPART SUPPLEMENTAL SCALE SQ SCH ×4 (00:18→17:26)
[2016-10-06] MEDS: CHLORHEXIDINE GLUCONATE 2 % 1 PACK (2 CLOTHS) TOP SCH (04:00)
[2016-10-06] MEDS: RESP: ALBUTEROL 2.5 MG/IPRATROPIUM 0.5 MG NEB (SCH) INH ×4 (05:38→21:37)
[2016-10-06] MEDS: ACETAMINOPHEN/HYDROcodone 325 MG/10 MG TAB PO PRN ×3 (06:12→21:10)
[2016-10-06] MEDS: CHLORHEXIDINE 0.12% (ORAL KIT) 15 ML CUP MT SCH ×2 (09:11→20:00)
[2016-10-06] MEDS: PANTOPRAZOLE SOD 20 MG DELAYED RELEASE TAB PO SCH (09:12)
[2016-10-06] MEDS: PREGABALIN 100 MG CAP PO SCH ×2 (09:12→21:08)
[2016-10-06] MEDS: PANTOPRAZOLE SODIUM 40 MG VIAL IV SCH (09:12)
[2016-10-06] MEDS: CITALOPRAM HYDROBROMIDE 40 MG TAB PO SCH (09:12)
[2016-10-06] MEDS: LISINOPRIL 5 MG TAB PO SCH (09:13)
[2016-10-06] MEDS: SODIUM CHLORIDE 0.9% FLUSH 10 ML FLUSH IV FLUSH SCH ×2 (09:13→21:00)
[2016-10-06] MEDS: DOCUSATE SODIUM 50 MG/SENNA 8.6 MG TAB PO SCH ×2 (09:13→21:00)
--- NOTE | 2016-10-06 10:14 | PD.ONC.PN ---
Subjective Subjective Remarks Afebrile overnight. Feeling better today. In good spirits. Objective Data Date Time Temp Pulse Resp B/P Pulse Ox O2 Delivery O2 Flow Rate FiO2 10/06/16 08:38 96 Nasal Cannula 4.00 10/06/16 08:27 98.0 56 18 120/73 96 10/06/16 04:00 98.7 104 20 135/88 93 10/06/16 00:00 98.5 101 20 130/76 96 10/05/16 23:46 92 Nasal Cannula 5.00 10/05/16 20:00 98.3 57 18 122/62 96 10/05/16 16:00 98.4 75 22 125/71 94 10/05/16 14:01 90 23 87/60 95 10/05/16 14:00 86 32 95 10/05/16 13:31 76 30 138/65 94 10/05/16 13:00 64 20 119/61 95 10/05/16 12:45 67 20 126/61 95 10/05/16 12:00 98.5 76 24 129/64 92 10/05/16 11:30 71 18 102/59 92 10/05/16 11:01 90 30 123/73 92 10/05/16 10:30 173 27 112/72 94 Result Diagram: 10/05/16 0550 10/04/16 0430 Culture Results Microbiology Date/Time Procedure Status Source Growth 10/03/16 14:35 Aerobic Blood Culture - Preliminary Resulted Blood Peripheral NO GROWTH IN 2 DAYS 10/03/16 14:35 Anaerobic Blood Culture - Preliminary Resulted Blood Peripheral NO GROWTH IN 2 DAYS 10/03/16 14:45 Aerobic Blood Culture - Preliminary Resulted Blood Peripheral NO GROWTH IN 2 DAYS 10/03/16 14:45 Anaerobic Blood Culture - Preliminary Resulted Blood Peripheral NO GROWTH IN 2 DAYS 10/03/16 16:15 Urine Culture - Final Complete Urine Catheterized Urine 10/04/16 00:45 Gram Stain - Final Complete Sputum Endotracheal 10/04/16 00:45 Sputum Culture - Final Complete Sputum Endotracheal HEAVY GROWTH NORMAL RESPIRATORY RUSSELL 10/04/16 00:45 Influenza Types A,B Antigen (MARGARETH) - Final Complete Nasal Washing NEGATIVE FOR FLU A AND B ANTIGEN.... Administered Medications Medications (Trade) Dose Ordered Sig/Bryant Route PRN Reason Start Time Stop Time Status Last Admin Dose Admin Levofloxacin/ Dextrose (Levaquin 750 Mg Premix Inj) 150 ml @ 100 mls/hr Q24H IV 10/03/16 20:00 10/05/16 20:08 Sodium Chloride (NS Flush) 2 ml BID IV FLUSH 10/03/16 21:00 10/06/16 09:13 Pantoprazole Sodium (Protonix Inj) 40 mg DAILY IV 10/04/16 09:00 10/05/16 08:21 Chlorhexidine Gluconate (Chlorhexidine 2% Cloth) 3 pack Taper DAILY@04 TOP 10/04/16 04:00 09/30/17 03:59 10/05/16 03:27 Senna/Docusate Sodium (Mary-Colace) 1 tab BID PO 10/03/16 21:00 10/06/16 09:13 Chlorhexidine Gluconate (Peridex 0.12% Liq) 15 ml BID@08,20 MT 10/03/16 20:00 10/03/16 20:00 Insulin Aspart (NovoLOG SUPPLEMENTAL SCALE) 1 Q6H SQ 10/03/16 19:15 10/06/16 06:14 Acetaminophen/ Hydrocodone Bitart ([place] 10-325 Mg) 1 tab TID PRN PO PAIN 10/03/16 19:15 10/06/16 06:12 Pravastatin Sodium (Pravachol) 40 mg HS PO 10/03/16 21:00 10/05/16 20:07 Aripiprazole (Abilify) 20 mg DAILY OG-TUBE 10/04/16 09:00 10/06/16 09:12 Hydralazine HCl (Apresoline Inj) 20 mg Q4H PRN IV SYSTOLIC BP > 160 mmHg 10/04/16 16:30 10/04/16 16:48 Alprazolam (Xanax) 1 mg TID PRN PO ANXIETY 10/05/16 10:30 10/06/16 00:13 Budesonide/ Formoterol Fumarate (Symbicort 160-4.5 Inh) 2 puff Q12HR INH 10/05/16 10:30 10/05/16 13:33 Citalopram Hydrobromide (CeleXA) 40 mg DAILY PO 10/06/16 09:00 10/06/16 09:12 Lisinopril (Prinivil) 5 mg DAILY PO 10/05/16 10:30 10/06/16 09:13 Pregabalin (Lyrica) 100 mg BID PO 10/05/16 21:00 10/06/16 09:12 Trazodone HCl (Desyrel) 50 mg HS PRN PO SLEEP 10/05/16 10:30 10/06/16 00:13 Pantoprazole Sodium (Protonix) 20 mg DAILY PO 10/06/16 09:00 10/06/16 09:12 Methylprednisolone Sodium Succinate (SoluMEDROL INJ) 40 mg Q8H IV PUSH 10/05/16 17:00 10/06/16 09:12 Objective Remarks GENERAL: Middle aged female chronically ill appearing upright in bed in nad. On 4L O2 via NC. SKIN: Warm and dry. HEAD: Normocephalic. EYES: No injection or drainage. NECK: Supple, trachea midline. CARDIOVASCULAR: Regular rate and rhythm RESPIRATORY: shallow respirations. otherwise clear. GASTROINTESTINAL: Abdomen soft, non-tender, nondistended. EXTREMITIES: No cyanosis, or edema. NEUROLOGICAL: No obvious focal deficit. Awake, alert, and oriented x3. PSYCHIATRIC: Appropriate mood and affect; insight and judgment normal. Assessment/Plan Assessment 66y/o female with MDS, admitted with respiratory insufficiency. Plan 1. patient looking much improved. she reiterated her commitment to stopping smoking. Recommend that patient see a bulk folder outpatient once she is discharged from the hospital 2. MDS: no transfusion needed at present. she could be discharged from oncology perspective. she will need to follow up with Dr. Mcclain in 2-3 weeks. 3. Oncology will sign off. Written by Shanice Ramos, acting as scribe for Dr. Mcclain on 10/06/16 at 10:14. Attending Statement clearly better and hopefully will be home in several days. will no pursue this month's course of Vidaza and resume next month. Shanice Ramos Oct 06, 2016 10:14 Tim Mcclain MD Oct 06, 2016 19:00
[2016-10-06] MEDS: BUDESONIDE-FORMOTEROL 160/4.5 MCG INHALER INH SCH ×2 (11:52→21:00)
--- NOTE | 2016-10-06 13:29 | HHI.PR ---
Subjective Remarks Patient seen and examined this morning. Vitals stable, saturating 94% on 4 L nasal cannula. She feels well, ambulatory without issues. Denies CP or SOB. Asking if she can go home. Objective Vital Signs Date Time Temp Pulse Resp B/P Pulse Ox O2 Delivery O2 Flow Rate FiO2 10/06/16 12:13 98.2 64 19 109/70 94 10/06/16 08:38 96 Nasal Cannula 4.00 10/06/16 08:27 98.0 56 18 120/73 96 10/06/16 04:00 98.7 104 20 135/88 93 10/06/16 00:00 98.5 101 20 130/76 96 10/05/16 23:46 92 Nasal Cannula 5.00 10/05/16 20:00 98.3 57 18 122/62 96 10/05/16 16:00 98.4 75 22 125/71 94 10/05/16 14:01 90 23 87/60 95 10/05/16 14:00 86 32 95 10/05/16 13:31 76 30 138/65 94 I/O 10/05/16 10/05/16 10/05/16 10/06/16 10/06/16 10/06/16 07:00 15:00 23:00 07:00 15:00 23:00 Intake Total 850 ml 600 ml Output Total 1050 ml 500 ml Balance -200 ml 100 ml Intake Oral 600 ml IV Total 850 ml 0 ml Output Urine Total 1050 ml 500 ml # Voids 5 2 # Bowel Movements 0 3 Result Diagram: 10/05/16 0550 10/04/16 0430 Imaging Last Impressions Chest X-Ray 10/04/16 0000 Signed Impressions: Service Date/Time: Tuesday, October 04, 2016 04:47 - CONCLUSION: No significant interval change. Fam Tenorio MD CT Angiography 10/03/16 0000 Signed Impressions: Service Date/Time: Monday, October 03, 2016 16:45 - CONCLUSION: No evidence of pulmonary embolism. Mild scarring predominantly in the lung bases, right greater than left. No mass is seen. Giorgi Lisa MD Other Results GENERAL: sitting in bed, appears comfortable, nad, nasal canula in place SKIN: Warm and dry. HEAD: Normocephalic. EYES: No scleral icterus. No injection or drainage. NECK: Supple, trachea midline. No JVD or lymphadenopathy. CARDIOVASCULAR: Regular rate and rhythm without murmurs, gallops, or rubs. RESPIRATORY: Breath sounds equal bilaterally. No accessory muscle use. GASTROINTESTINAL: Abdomen soft, non-tender, nondistended. MUSCULOSKELETAL: No cyanosis, or edema. BACK: Nontender without obvious deformity. No CVA tenderness. A/P Problem List: (1) COPD (chronic obstructive pulmonary disease) ICD Code: J44.9 (2) Respiratory failure ICD Code: J96.90 (3) Myelodysplasia ICD Code: Q06.1 Assessment and Plan 66 yo female with history of myelodysplastic disorder and COPD presented to the ER for evaluation of hypoxia. Patient was in her oncologist office and was found to have a saturation of 82% on room air. She was placed on BiPAP in the ED. She continued to have acidosis and was intubated in the ER. She tolerated CPAP trials and was extubated on October 05 and transition to nasal cannula. Respiratory Failure - COPD exacerbation - Management: Continue breathing treatments (albuterol and DuoNeb's), continue Symbicort, Solu-Medrol 40 mg IV every 8, Levaquin 750 mg (10/03-) Myelodysplasitc Disorder - pancytopenia - follows with Dr. Mcclain, has signed off, cleared from oncology perspective, follow up with Dr. Sy in 2-3 weeks - Cont Vidaza Chronic hip pain - Continue Darwin HTN: lisinopril and HCTZ resumed Bipolar, Anxiety, Insomnia, Peripheral neuropathy: home meds resumed Discharge Planning DC pending continued clinical improvement: Home walked test ordered. Likely this evening or tomorrow. Problem Qualifiers (1) Respiratory failure: Qualified Code: J96.02 - Acute respiratory failure with hypercapnia Ivanna Pinzon MD Oct 06, 2016 13:29
[2016-10-06] MEDS ORDERED: LEVOFLOXACIN 750 MG TAB PO SCH (21:00)
[2016-10-06] MEDS: PRAVASTATIN SOD 40 MG TAB PO SCH (21:07)
[2016-10-06] MEDS: predniSONE 20 MG TAB PO SCH (21:09)
[2016-10-07] VITALS (7 sets, daily range): BP systolic 125–173; BP diastolic 65–107; PULSE 68–94; RESP 16–20; TEMP 97.4–98.4; O2SAT 94–98
[2016-10-07] MEDS: INSULIN ASPART SUPPLEMENTAL SCALE SQ SCH ×4 (01:06→18:23)
[2016-10-07] MEDS: RESP: ALBUTEROL 2.5 MG/IPRATROPIUM 0.5 MG NEB (SCH) INH ×4 (03:45→20:19)
[2016-10-07] MEDS: CHLORHEXIDINE GLUCONATE 2 % 1 PACK (2 CLOTHS) TOP SCH (04:00)
[2016-10-07] MEDS: ACETAMINOPHEN/HYDROcodone 325 MG/10 MG TAB PO PRN ×2 (06:16→16:42)
[2016-10-07] MEDS ORDERED: OXYGENTANK NAS.CANULA (06:51)
[2016-10-07] MEDS ORDERED: PRED5TAB PO (06:56)
[2016-10-07] MEDS ORDERED: LEVA750T9 PO (06:56)
[2016-10-07] MEDS ORDERED: PRED10 PO (06:56)
[2016-10-07] MEDS ORDERED: PRED20 PO ×2 (06:56)
[2016-10-07] MEDS: CHLORHEXIDINE 0.12% (ORAL KIT) 15 ML CUP MT SCH (08:00)
[2016-10-07] MEDS: SODIUM CHLORIDE 0.9% FLUSH 10 ML FLUSH IV FLUSH SCH (09:00)
[2016-10-07] MEDS: BUDESONIDE-FORMOTEROL 160/4.5 MCG INHALER INH SCH (09:00)
[2016-10-07] MEDS: PREGABALIN 100 MG CAP PO SCH (10:02)
[2016-10-07] MEDS: PANTOPRAZOLE SOD 20 MG DELAYED RELEASE TAB PO SCH (10:03)
[2016-10-07] MEDS: predniSONE 20 MG TAB PO SCH (10:03)
[2016-10-07] MEDS: PANTOPRAZOLE SODIUM 40 MG VIAL IV SCH (10:04)
[2016-10-07] MEDS: LISINOPRIL 5 MG TAB PO SCH (10:04)
[2016-10-07] MEDS: CITALOPRAM HYDROBROMIDE 40 MG TAB PO SCH (10:04)
[2016-10-07] MEDS: DOCUSATE SODIUM 50 MG/SENNA 8.6 MG TAB PO SCH (10:05)
--- NOTE | 2016-10-07 13:48 | HHI.PR ---
Subjective Remarks Patient seen and examined this morning. Vitals stable, saturating 98% on 4 L nasal cannula. Failed home O2 walk test. She feels well, ambulatory without issues. Denies CP or SOB. Crying with excitement to go home. Objective Vital Signs Date Time Temp Pulse Resp B/P Pulse Ox O2 Delivery O2 Flow Rate FiO2 10/07/16 12:04 98.1 68 19 145/84 98 10/07/16 08:21 95 Nasal Cannula 4.00 10/07/16 08:12 98.4 78 17 173/83 96 10/07/16 08:00 86 10/07/16 04:06 98.4 75 16 125/71 95 10/07/16 00:09 97.4 94 20 145/107 94 10/06/16 21:37 96 Nasal Cannula 4.00 10/06/16 20:04 97.5 86 20 130/72 97 10/06/16 16:30 3.00 10/06/16 16:14 97.9 63 19 134/76 95 I/O 10/06/16 10/06/16 10/06/16 10/07/16 10/07/16 10/07/16 07:00 15:00 23:00 07:00 15:00 23:00 Intake Total 720 ml Output Total 3 ml Balance 717 ml Intake Oral 720 ml Stool Total 3 ml # Voids 5 2 3 1 # Bowel Movements 3 Result Diagram: 10/05/16 0550 10/04/16 0430 Imaging Last Impressions Chest X-Ray 10/04/16 0000 Signed Impressions: Service Date/Time: Tuesday, October 04, 2016 04:47 - CONCLUSION: No significant interval change. Fam Tenorio MD CT Angiography 10/03/16 0000 Signed Impressions: Service Date/Time: Monday, October 03, 2016 16:45 - CONCLUSION: No evidence of pulmonary embolism. Mild scarring predominantly in the lung bases, right greater than left. No mass is seen. Giorgi Lisa MD Objective Remarks GENERAL: sitting in bed, appears comfortable, nad, nasal canula in place SKIN: Warm and dry. HEAD: Normocephalic. EYES: No scleral icterus. No injection or drainage. NECK: Supple, trachea midline. No JVD or lymphadenopathy. CARDIOVASCULAR: Regular rate and rhythm without murmurs, gallops, or rubs. RESPIRATORY: Breath sounds expiratory wheezing diffusely bilaterally. No accessory muscle use. GASTROINTESTINAL: Abdomen soft, non-tender, nondistended. MUSCULOSKELETAL: No cyanosis, or edema. BACK: Nontender without obvious deformity. No CVA tenderness. A/P Problem List: (1) COPD (chronic obstructive pulmonary disease) ICD Code: J44.9 (2) Respiratory failure ICD Code: J96.90 (3) Myelodysplasia ICD Code: Q06.1 Assessment and Plan 66 yo female with history of myelodysplastic disorder and COPD presented to the ER for evaluation of hypoxia. Patient was in her oncologist office and was found to have a saturation of 82% on room air. She was placed on BiPAP in the ED. She continued to have acidosis and was intubated in the ER. She tolerated CPAP trials and was extubated on October 05 and transition to nasal cannula. Respiratory Failure - COPD exacerbation - Management: Continue breathing treatments (albuterol and DuoNeb's), continue Symbicort, Solu-Medrol 40 mg IV every 8, Levaquin 750 mg (10/03-) 2 additional days at d/c - steroid taper at d.c and home oxygen Myelodysplasitc Disorder - pancytopenia - follows with Dr. Mcclain, has signed off, cleared from oncology perspective, follow up with Dr. Sy in 2-3 weeks - Cont Vidaza Chronic hip pain - Continue [place] HTN: lisinopril and HCTZ resumed Bipolar, Anxiety, Insomnia, Peripheral neuropathy: home meds resumed Discharge Planning DC today with oxygen. Problem Qualifiers (1) Respiratory failure: Qualified Code: J96.02 - Acute respiratory failure with hypercapnia Ivanna Pinzon MD Oct 07, 2016 13:48
--- NOTE | 2016-10-07 13:50 | HHI.DCPOC ---
Discharge Care Plan Diagnosis: (1) Respiratory failure (2) COPD with exacerbation (3) Myelodysplasia Goals to Promote Your Health * To prevent worsening of your condition and complications * To maintain your health at the optimal level Directions to Meet Your Goals Take your medications as prescribed Follow your dietary instruction Follow activity as directed Keep your appointments as scheduled Take your immunizations and boosters as scheduled If your symptoms worsen call your PCP, if no PCP go to Urgent Care Center or Emergency Room Smoking is Dangerous to Your Health. Avoid second hand smoke Call the 24-hour hour crisis hotline for domestic abuse at Ivanna Pinzon MD Oct 07, 2016 13:50
--- NOTE | 2016-10-07 18:38 | HHI.DS ---
Discharge Summary Admission Date Oct 03, 2016 at 18:15 Discharge Date: Oct 07, 2016 Admitting Diagnosis respiratory failure, hypoxia, leukopenia, myelodysplastic syndrome Brief History "Patient is intubated and unable to provide history. History was obtained by review of the EMR, discussion with the ED physician, discussion with patient's sister. 66-year-old female with past medical history of myelodysplastic disorder (dx'd ~ 10 yrs ago, followed by Dr. Mcclain, on Vidaza) , COPD (NOT requiring home O2), diabetes mellitus, Bipolar disorder, remote history of drug abuse and alcoholism who presented to [facility] emergency department for evaluation of hypoxia and hypotension. She was in her oncologist office and sats were 82% on RA and blood pressure was in the 80s. Per EVAC sats were 88% on room air. She was placed on 2 L nasal cannula and sats were in the 90s. Apparently patient has a baseline blood pressure in the 90s. She has dealt with a cough for about 3 weeks. About a week ago she was prescribed azithromycin. Reportedly her cough is now productive of green sputum. She has not been febrile. ED workup revealed that she was in acute hypercapnic respiratory failure with pH 7.26/PaCO2 of 66/PaO2 of 83/bicarbonate of 29 on 2 L nasal cannula. She was placed on BiPAP 16/8 and was tolerating well. After one hour on BiPAP a repeat ABG showed pH of 7.23/PaCO2 of 68/PaO2 of 477 and she agreed to intubation by ED provider. She underwent CT pulmonary angiogram that was negative for pulmonary embolism. Her lactic acid is 0.6. Troponin is less than 0.02. She is pancytopenic with white blood cell count of 1.8, ANC 936, hemoglobin 9.5, platelets 56. Her BP was initially 114/57-131/61 in the ED when on BiPAP. After she was intubated and placed on propofol she was hypotensive with systolics in the high 80s to low 90s. Propofol was discontinued and she was placed on a Versed drip at 3 mg per hour. She was bolused 2 L normal saline. When I arrived to evaluate her in the ED she was not well sedated, intermittently biting on tube, wheezing, airtrapping with autoPEEP on vent. ABG had just been obtained and was 7.19/66/105. Vent was adjusted by decreasing respiratory rate and she was sedated with fentanyl bolus and drip, versed bolus. Given vecuronium 10 mg IV." CBC/BMP: 10/05/16 0550 10/04/16 0430 Significant Findings Laboratory Tests Test 10/05/16 05:50 White Blood Count 3.4 TH/MM3 (4.0-11.0) Red Blood Count 3.04 MIL/MM3 (4.00-5.30) Hemoglobin 9.4 GM/DL (11.6-15.3) Hematocrit 28.5 % (35.0-46.0) Red Cell Distribution Width 19.6 % (11.6-17.2) Platelet Count 38 TH/MM3 (150-450) Neutrophils (%) (Auto) 93.4 % (16.0-70.0) Lymphocytes (%) (Auto) 5.0 % (9.0-44.0) Lymphocytes # (Auto) 0.2 TH/MM3 (1.0-4.8) Platelet Estimate LOW (NORMAL) Platelet Morphology Comment ENLARGED (NORMAL) Ovalocytes 2+ (NORMAL) Imaging Last Impressions Chest X-Ray 10/04/16 0000 Signed Impressions: Service Date/Time: Tuesday, October 04, 2016 04:47 - CONCLUSION: No significant interval change. Fam Tenorio MD CT Angiography 10/03/16 0000 Signed Impressions: Service Date/Time: Monday, October 03, 2016 16:45 - CONCLUSION: No evidence of pulmonary embolism. Mild scarring predominantly in the lung bases, right greater than left. No mass is seen. Giorgi Lisa MD Transfer Summary Patient is intubated and unable to provide history. History was obtained by review of the EMR, discussion with the ED physician, discussion with patient's sister. 66-year-old female with past medical history of myelodysplastic disorder (dx'd ~ 10 yrs ago, followed by Dr. Mcclain, on papa) , COPD (NOT requiring home O2), diabetes mellitus, Bipolar disorder, remote history of drug abuse and alcoholism who presented to [facility] emergency department for evaluation of hypoxia and hypotension. She was in her oncologist office and sats were 82% on RA and blood pressure was in the 80s. Per EVAC sats were 88% on room air. She was placed on 2 L nasal cannula and sats were in the 90s. Apparently patient has a baseline blood pressure in the 90s. She has dealt with a cough for about 3 weeks. About a week ago she was prescribed azithromycin. Reportedly her cough is now productive of green sputum. She has not been febrile. ED workup revealed that she was in acute hypercapnic respiratory failure with pH 7.26/PaCO2 of 66/PaO2 of 83/bicarbonate of 29 on 2 L nasal cannula. She was placed on BiPAP 01/11 and was tolerating well. After one hour on BiPAP a repeat ABG showed pH of 7.23/PaCO2 of 68/PaO2 of 477 and she agreed to intubation by ED provider. She underwent CT pulmonary angiogram that was negative for pulmonary embolism. Her lactic acid is 0.6. Troponin is less than 0.02. She is pancytopenic with white blood cell count of 1.8, ANC 936, hemoglobin 9.5, platelets 56. Her BP was initially 114/57-131/61 in the ED when on BiPAP. After she was intubated and placed on propofol she was hypotensive with systolics in the high 80s to low 90s. Propofol was discontinued and she was placed on a Versed drip at 3 mg per hour. She was bolused 2 L normal saline. When I arrived to evaluate her in the ED she was not well sedated, intermittently biting on tube, wheezing, airtrapping with autoPEEP on vent. ABG had just been obtained and was 7.19/66/105. Vent was adjusted by decreasing respiratory rate and she was sedated with fentanyl bolus and drip, versed bolus. Given vecuronium 10 mg IV. SUBJ 10/04/16: Patient is intubated off sedation. She is tolerating CPAP trials well. We'll proceed with weaning parameters for possible extubation 10/05: Extubated yesterday tolerating well breathing comfortably on nasal cannula. Appears to be in good spirits. Will resume home lisinopril and hydrochlorothiazide, also resume [facility] Hospital Course 66 yo female with history of myelodysplastic disorder and COPD presented to the ER for evaluation of hypoxia. Patient was in her oncologist office and was found to have a saturation of 82% on room air. She was placed on BiPAP in the ED. She continued to have acidosis and was intubated in the ER. She tolerated CPAP trials and was extubated on October 05 and transition to nasal cannula. For his respiratory failure related to his COPD he was treated with breathing treatments (albuterol and DuoNeb's),Symbicort, steroids (d/c on taper), and Levaquin 750 mg (10/03-) 2 additional days at d/c. For her Myelodysplasitc Disorder was seen by Dr. Mcclain, who Cont Terry. By October 07 patient had reached max benefit from inpatient hospitlization. She was discharged home with home oxygen, PCP and f/u with Dr. Mcclain. Pt Condition on Discharge: Stable Discharge Disposition: Discharge Home Discharge Instructions DIET: Follow Instructions for: Heart Healthy Diet Activities you can perform: Weight Bearing as Paty New Medications: Oxygen tank (Oxygen tank) 1 Ea Tank 2 LITER [employer] CONTINUOUS Oxygen Concentrator Portable Gaseous 2 L/min via Nasal Cannula Continuous For 99 months HYPOXEMIA PREVENTION #1 CYLINDER Prednisone (Prednisone) 20 Mg Tab 40 MG PO DAILY Take 40 mg (2 tablets) daily for 5 days copd #4 Ref 0 TAB Prednisone (Prednisone) 20 Mg Tab 20 MG PO DAILY copd #3 Ref 0 TAB Prednisone (Prednisone) 5 Mg Tab 5 MG PO DAILY copd #3 Ref 0 TAB Prednisone (Prednisone) 10 Mg Tab 10 MG PO DAILY copd #3 Ref 0 TAB Levofloxacin (Levaquin) 750 Mg Tablet 750 MG PO DAILY@21 COPD exacerbation #2 TAB Prednisone (Prednisone) 20 Mg Tab 40 MG PO BID COPD #8 TAB Continued Medications: Albuterol 18 GM Inh (Ventolin Hfa 18 GM Inh) 90 Mcg/Act Aer 2 PUFF INH TID PRN SHORTNESS OF BREATH #1 Ref 0 INHALER Albuterol Neb (Albuterol Neb) 2.5 Mg/3 Ml Neb 2.5 MG NEB TID NEB PRN SHORTNESS OF BREATH #60 Ref 0 NEBULE Alprazolam (Alprazolam) 1 Mg Tab 1 MG PO TID PRN ANXIETY Ref 0 TAB Aripiprazole (Abilify) 20 Mg Tab 20 MG PO DAILY #30 Ref 0 TAB Budesonide-Formoterol Inh (Symbicort Inh) 160-4.5 Mcg/Act Aero 1-2 PUFF INH Q12HR PRN SHORTNESS OF BREATH #1 Ref 0 INHALER Citalopram (Citalopram) 40 Mg Tab 40 MG PO DAILY Control Depression #30 Ref 0 TAB Glipizide ER (Glipizide XL) 5 Mg Redd 5 MG PO BID Take with breakfast or first main meal of the day Blood Sugar Management #30 Ref 0 TAB Hydrochlorothiazide (Hydrochlorothiazide) 25 Mg Tab 25 MG PO EVERY OTHER DAY PRN EDEMA #30 TAB Hydrocodone-Acetaminophen (Lortab) 10-325 Mg Tab 1 TAB PO TID PRN PAIN Ref 0 TAB Linagliptin (Tradjenta) 5 Mg Tab 5 MG PO DAILY Blood Sugar Management #30 Ref 0 TAB Lisinopril (Lisinopril) 5 Mg Tab 5 MG PO DAILY Blood Pressure Management #30 Ref 0 TAB Omeprazole (Omeprazole) 20 Mg Tab 20 MG PO DAILY #30 Ref 0 TAB Potassium Chloride ER (K-Tab) 10 Meq Tab 10 MEQ PO HS Electrolyte Replacement #60 Ref 0 TAB Pregabalin (Lyrica) 100 Mg Cap 100 MG PO BID #60 Ref 0 CAP Simvastatin (Simvastatin) 20 Mg Tab 20 MG PO HS Cholesterol Management #30 Ref 0 TAB Trazodone (Trazodone) 50 Mg Tab 50 MG PO HS PRN SLEEP #30 Ref 0 TAB Ivanna Pinzon MD Oct 07, 2016 18:38
== END 2016-10-07 20:20 | disposition home or self-care (01) | DRG 208 ==
LOC: NEPE 14:09 → NEDA 18:15 → HIME 20:15 → N05A 10-05 15:27
PROVIDERS: ADMIT Family Medicine; ATTEND Family Medicine
PROC: 5A1935Z Respiratory Ventilation, Less than 24 Consecutive Hours (ICD-10-PCS; principal; 2016-10-03)
PROC: 0BH17EZ Insertion of Endotracheal Airway into Trachea, Via Natural or Artificial Opening (ICD-10-PCS; 2016-10-03)
PROC: 05HM33Z Insertion of Infusion Device into Right Internal Jugular Vein, Percutaneous Approach (ICD-10-PCS; 2016-10-03)
DX: J96.02 Acute respiratory failure with hypercapnia (principal); D61.818 Other pancytopenia; J44.1 Chronic obstructive pulmonary disease with (acute) exacerbation; E87.2 Acidosis; J98.11 Atelectasis; G62.9 Polyneuropathy, unspecified; D46.9 Myelodysplastic syndrome, unspecified; J96.01 Acute respiratory failure with hypoxia; F31.9 Bipolar disorder, unspecified; E11.9 Type 2 diabetes mellitus without complications; G89.29 Other chronic pain; M25.559 Pain in unspecified hip; K21.9 Gastro-esophageal reflux disease without esophagitis; H91.90 Unspecified hearing loss, unspecified ear; F17.210 Nicotine dependence, cigarettes, uncomplicated; F41.9 Anxiety disorder, unspecified; G47.00 Insomnia, unspecified; I25.10 Atherosclerotic heart disease of native coronary artery without angina pectoris; Z79.51 Long term (current) use of inhaled steroids; E78.5 Hyperlipidemia, unspecified; I10 Essential (primary) hypertension; F10.21 Alcohol dependence, in remission; M81.0 Age-related osteoporosis without current pathological fracture; G43.909 Migraine, unspecified, not intractable, without status migrainosus; M19.90 Unspecified osteoarthritis, unspecified site
CPT/HCPCS: 31500; 36556; 36600; 71010; 71275; 76937; 80053; 80307; 81001; 82550; 82805; 82948; 83605; 83735; 84100; 84484; 85007; 85025; 85027; 85610; 85730; 86403; 87040; 87070; 87077; 87086; 87186; 87205; 87641; 87804; 93005; 94002; 94003; 94150; 94620; 94640; 94664; 96361; 96365; 96375; C9113; J0330; J0360; J0692; J1650; J1815; J1956; J2250; J2920; J2930; J3010; J7030; J7512; Q9967

== ENCOUNTER → 2016-10-23 | Outpatient (CLI) | payer MEDICAID ==
[~2016-10-23] MED LIST changes: +ALBU0.08 NEB; -ALBU8I INH; +ALPR1TAB3 PO; +ARIP1TAB7 PO; -AZIT250T74 PO; -CITA-48 PO; +CITA40TA4 PO; +GLIP-157 PO; -GLIP5 PO; -HYDR-2768 PO; +HYDR-3535 PO; +HYDR25TA5 PO; +K-TA10TA PO; +LEVA750T9 PO; +LISI-519 PO; +LYRI100C PO; +OMEP20TA PO; +OXYGENTANK NAS.CANULA; -PERC10TA27 PO; +PRED10 PO; +PRED5TAB PO; -SIMV20 PO; +SIMV20TA PO; +SYMB160A INH; +TRAD5TAB PO; +TRAZ50TA12 PO; -TRAZ50TA4 PO; +VENTAER INH; -XANA1TAB6 PO
--- NOTE | 2016-10-25 10:53 | RSPPFT ---
DATE OF PROCEDURE: 10/23/16 COMMENTS: Spirometry with FVC of 2.4, FEV1 of 1.3, FEV1/FVC ratio at 56%. A positive and significant response to acutely inhaled bronchodilator noted. Slow vital capacity is 82% of predicted. TLC is 120%. Diffusion capacity is mildly reduced at 63% of predicted. Post-bronchodilator study indicates a positive and significant response. IMPRESSION: 1. Moderately severe airways obstruction. 2. Positive response to acutely inhaled bronchodilator. 3. No evidence of airways restriction. 4. Mild reduction in diffusion capacity.
== END ==
LOC: HRSP 08:58
PROVIDERS: ATTEND Internal Medicine Sleep Medicine
DX: R06.89 Other abnormalities of breathing (principal)
CPT/HCPCS: 94060; 94726; 94729

== ENCOUNTER 2016-12-28 14:33 | Emergency (ER) | payer MEDICAID ==
[~2016-12-28] VITALS: Ht 160 cm; Wt 72.0 kg
[2016-12-28] MEDS ORDERED: IOHEXOL 350 MG/ML 10 ML VIAL (for RAD DIAG) IVCONTRAST ONE (14:34)
[2016-12-28 14:46] VITALS: BP_SYST 131; BP_SYST 90; BP_DIAS 53; BP_DIAS 61; PULSE 70; RESP 18; TEMP 98.6; O2SAT 95
[2016-12-28 15:15] VITALS: O2SAT 98
[2016-12-28] MEDS ORDERED: SODIUM CHLOR 0.9% 1000 ML INJ 1,000 ML IV ONE (15:15)
[2016-12-28] MEDS ORDERED: SODIUM CHLORIDE 0.9% FLUSH 10 ML FLUSH IVF PRN (15:15)
--- NOTE | 2016-12-28 15:33 | RADRPT ---
EXAM DATE/TIME: 12/28/2016 15:05 [place] COMPARISON: CHEST SINGLE AP, October 04, 2016, 4:47. INDICATIONS : Chest pain MEDICAL HISTORY : Diabetes mellitus type I. Chronic obstructive pulmonary disease Leukemia SURGICAL HISTORY : Appendectomy. Tubal ligation ENCOUNTER: Initial ACUITY: 1 day PAIN SCORE: 0/10 LOCATION: chest FINDINGS: A single view of the chest demonstrates the lungs to be symmetrically aerated without evidence of mas s, infiltrate or effusion. The lungs are hyperinflated bilaterally. The cardiomediastinal contours a re unremarkable. Osseous structures are intact. CONCLUSION: Hyperinflation suggesting COPD. No acute infiltrate or effusion. Aurelio Patterson Jr., MD on December 28, 2016 at 15:31 Board Certified Radiologist. This report was verified electronically.
[2016-12-28 15:36] LABS: AUTOMATED NEUTROPHIL # 0.5 TH/MM3 (1.8-7.7); BASOPHIL % 0.6 % (0.0-2.0); EOSINOPHIL % 1.8 % (0.0-4.0); HEMATOCRIT 24.2 % (35.0-46.0); LYMPH % 35.7 % (9.0-44.0); LYMPHOCYTE # 0.3 TH/MM3 (1.0-4.8); MEAN CELL VOLUME 91.1 FL (80.0-100.0); MEAN CORPUSCULAR HEMOGLOBIN 30.7 PG (27.0-34.0); MEAN CORPUSCULAR HGB CONC 33.6 % (32.0-36.0); MONO % 12.4 % (0.0-8.0); NEUT % 49.5 % (16.0-70.0); RED BLOOD COUNT 2.65 MIL/MM3 (4.00-5.30); RED CELL DISTRIBUTION WIDTH 19.6 % (11.6-17.2)
[2016-12-28 15:39] LABS: HEMO FLAGS AUTO DIFF; PLATELET COUNT 26 TH/MM3 (150-450)
[2016-12-28 15:50] LABS: ALT (GPT) 11 U/L (10-53); ANION GAP 5 MEQ/L (5-15); AST (GOT) 11 U/L (15-37); BICARBONATE 28.9 MEQ/L (21.0-32.0); BLOOD UREA NITROGEN 14 MG/DL (7-18); CHLORIDE 104 MEQ/L (98-107); GLOMERULAR FILTRATION RATE 73 ML/MIN (>89); POTASSIUM 3.7 MEQ/L (3.5-5.1); SODIUM (NA) 138 MEQ/L (136-145)
[2016-12-28 15:54] LABS: ALKALINE PHOSPHATASE 74 U/L (45-117); TOTAL BILIRUBIN ADULT 0.4 MG/DL (0.2-1.0)
[2016-12-28 15:59] LABS: APTT (PATIENT) 29.6 SEC (24.3-30.1); PROTHROMBIN TIME - PATIENT 10.7 SEC (9.8-11.6)
[2016-12-28 16:02] LABS: CREATINE KINASE 52 U/L (26-192)
[2016-12-28 16:21] LABS: BANDS 3 % (0-6); CORRECTED NUCLEATED RBC 1 /100 WBC (0-0); NEUTROPHIL # MANUAL DIFF 0.4 TH/MM3 (1.8-7.7); POLYS (SEG NEUTROPHILS) 41 % (16-70); WBC DIFF SAMPLE 100
[2016-12-28 16:26] LABS: OVALOCYTES 1+ (NORMAL); TEARDROP RBCS 1+ (NORMAL)
[2016-12-28 16:27] LABS: PLATELET ESTIMATE SMEAR LOW (NORMAL); PLATELET MORPHOLOGY NORMAL (NORMAL); SCAN/DIFF FINAL DIFF MANUAL
--- NOTE | 2016-12-28 17:23 | PD ---
HPI Chief Complaint: Medical Clearance Time Seen by Provider: 14:48 Travel History International Travel<30 days: No Contact w/Intl Traveler<30days: No Traveled to known affect area: No History of Present Illness HPI Patient is a 66-year-old female, with history of myelodysplastic syndrome and COPD, who comes in from the oncology center where she was receiving treatment for her low white count, due to a low blood pressure reading. Patient says she has no symptoms. She was therefore her medication as scheduled. Per EMS, they took her blood pressure noticed and noticed it was low, so they sent her here. EMS noticed that her blood pressure in her right arm was normal, but the left arm is low. Patient denies any symptoms at this time. She has not been having any chest pain or shortness of breath. She denies any fevers at home. She wears oxygen at home as needed. PFSH Past Medical History Anemia: Yes Arthritis: Yes Asthma: Yes Blood Disorders: No Bipolar Disorder: Yes Anxiety: Yes Depression: Yes Heart Rhythm Problems: No Cancer: Yes Cardiac Catheterization: No Cardiovascular Problems: No High Cholesterol: Yes Chemotherapy: Yes Congestive Heart Failure: No COPD: Yes Coronary Artery Disease: No Diabetes: Yes Patient Takes Glucophage: No Diminished Hearing: Yes (SLIGHTLY RAMONA) Diverticulitis: Yes Endocrine: Yes GERD: Yes Genitourinary: No Headaches: Yes Hypertension: Yes Immune Disorder: Yes (MYELODYSPLASIA) Musculoskeletal: Yes Neurologic: Yes Psychiatric: Yes (CLAUSTRAPHOBIA/ BIPOLAR) Reproductive: No Respiratory: Yes (COPD) Immunizations Current: No Migraines: Yes Myocardial Infarction: No Radiation Therapy: No Menopausal: Yes : 5 Para: 3 Miscarriage: 1 : 1 Tubal Ligation: Yes Past Surgical History Abdominal Surgery: Yes (BOWEL OBSTRACTION ) Appendectomy: Yes Coronary Artery Bypass Graft: No Ear Surgery: Yes (LEFT EAR -AGE 11) Oral Surgery: Yes (ORIF MANDIBLE) Pacemaker: No Tonsillectomy: Yes Other Surgery: Yes Social History Alcohol Use: No Tobacco Use: No Substance Use: No Allergies-Medications (Allergen,Severity, Reaction): Coded Allergies: No Known Allergies (Unverified , 01/05/16) Reported Meds & Prescriptions Reported Meds & Active Scripts Active Reported Albuterol Neb (Albuterol Sulfate) 2.5 Mg/3 Ml Neb 2.5 Mg NEB TID NEB PRN Symbicort Inh (Budesonide/Formoterol Fumarate) 160-4.5 Mcg/Act Aero 1-2 Puff INH Q12HR PRN Tradjenta (Linagliptin) 5 Mg Tab 5 Mg PO DAILY Lortab (Hydrocodone-Acetaminophen) 10-325 Mg Tab 1 Tab PO TID PRN Alprazolam 1 Mg Tab 1 Mg PO TID PRN Glipizide XL (Glipizide) 5 Mg Redd 5 Mg PO BID Take with breakfast or first main meal of the day Trazodone (Trazodone HCl) 50 Mg Tab 50 Mg PO HS PRN Citalopram (Citalopram Hydrobromide) 40 Mg Tab 40 Mg PO DAILY Ventolin Hfa 18 GM Inh (Albuterol Sulfate) 90 Mcg/Act Aer 2 Puff INH TID PRN Review of Systems Except as stated in HPI: all other systems reviewed are Neg General / Constitutional: No: Fever, Chills Eyes: No: Blurred Vision HENT: No: Headaches, Lightheadedness Cardiovascular: No: Chest Pain or Discomfort Respiratory: No: Shortness of Breath Gastrointestinal: No: Nausea, Vomiting, Abdominal Pain Genitourinary: No: Dysuria Musculoskeletal: No: Myalgias, Pain Skin: No Rash, No Change in Pigmentation Neurologic: No: Weakness, Dizziness Physical Exam Narrative GENERAL: Awake and alert, in no acute distress. SKIN: Focused skin assessment warm/dry. HEAD: Atraumatic. Normocephalic. EYES: Pupils equal and round. No scleral icterus. ENT: No nasal bleeding or discharge. Mucous membranes pink and moist. NECK: Trachea midline. No JVD. CARDIOVASCULAR: Regular rate and rhythm. No murmur appreciated. RESPIRATORY: No accessory muscle use. Clear to auscultation. Breath sounds equal bilaterally. GASTROINTESTINAL: Abdomen soft, non-tender, nondistended. MUSCULOSKELETAL: No obvious deformities. No clubbing. No cyanosis. No edema. Radial pulses equal in both arms. NEUROLOGICAL: Awake and alert. No obvious cranial nerve deficits. Motor grossly within normal limits. Normal speech. PSYCHIATRIC: Appropriate mood and affect; insight and judgment normal. Data Data Last Documented VS Vital Signs Date Time Temp Pulse Resp B/P (MAP) Pulse Ox O2 Delivery O2 Flow Rate FiO2 12/28/16 15:15 (84) 98 Nasal Cannula 2.00 10/12/17 14:46 98.6 70 18 Orders Orders Electrocardiogram (12/28/16 15:03) Ckmb (Isoenzyme) Profile (12/28/16 15:) Complete Blood Count With Diff (12/28/16 15:03) Comprehensive Metabolic Panel (12/28/16:) Prothrombin Time / Inr (Pt) (12/28/16:) Act Partial Throm Time (Ptt) (12/28/16:) Troponin I (12/28/16:) Chest, Single Ap (12/28/16:) Ecg Monitoring (12/28/16:) Bilateral Bp Monitoring (12/28/16:) Iv Access Insert/Monitor (12/28/16:) Oximetry (12/28/16:) Oxygen Administration (12/28/16:) Sodium Chloride 0.9% Flush (Ns Flush) (12/28/16 15:15) Cta Thor Abd Aorta W Iv C W3d (12/28/16 15:03) Sodium Chlor 0.9% 1000 Ml Inj (Ns 1000 M (12/28/16 15:15) Iohexol 350 Inj (Omnipaque 350 Inj) (12/28/16 14:34) Labs Laboratory Tests Test 12/28/16 15:00 White Blood Count 1.0 TH/MM3 Red Blood Count 2.65 MIL/MM3 Hemoglobin 8.1 GM/DL Hematocrit 24.2 % Mean Corpuscular Volume 91.1 FL Mean Corpuscular Hemoglobin 30.7 PG Mean Corpuscular Hemoglobin Concent 33.6 % Red Cell Distribution Width 19.6 % Platelet Count 26 TH/MM3 Mean Platelet Volume 8.2 FL Neutrophils (%) (Auto) 49.5 % Lymphocytes (%) (Auto) 35.7 % Monocytes (%) (Auto) 12.4 % Eosinophils (%) (Auto) 1.8 % Basophils (%) (Auto) 0.6 % Neutrophils # (Auto) 0.5 TH/MM3 Lymphocytes # (Auto) 0.3 TH/MM3 Monocytes # (Auto) 0.1 TH/MM3 Eosinophils # (Auto) 0.0 TH/MM3 Basophils # (Auto) 0.0 TH/MM3 CBC Comment AUTO DIFF Differential Total Cells Counted 100 Neutrophils % (Manual) 41 % Band Neutrophils % 3 % Lymphocytes % 46 % Monocytes % 10 % Neutrophils # (Manual) 0.4 TH/MM3 Nucleated Red Blood Cells 1 /100 WBC Differential Comment FINAL DIFF MANUAL Platelet Estimate LOW Platelet Morphology Comment NORMAL Tear Drop Cells 1+ Ovalocytes 1+ Prothrombin Time 10.7 SEC Prothromb Time International Ratio 1.0 RATIO Activated Partial Thromboplast Time 29.6 SEC Blood Urea Nitrogen 14 MG/DL Creatinine 0.79 MG/DL Random Glucose 119 MG/DL Total Protein 6.6 GM/DL Albumin 3.4 GM/DL Calcium Level 8.3 MG/DL Alkaline Phosphatase 74 U/L Aspartate Amino Transf (AST/SGOT) 11 U/L Alanine Aminotransferase (ALT/SGPT) 11 U/L Total Bilirubin 0.4 MG/DL Sodium Level 138 MEQ/L Potassium Level 3.7 MEQ/L Chloride Level 104 MEQ/L Carbon Dioxide Level 28.9 MEQ/L Anion Gap 5 MEQ/L Estimat Glomerular Filtration Rate 73 ML/MIN Total Creatine Kinase 52 U/L Troponin I LESS THAN 0.02 NG/ML MDM Medical Decision Making Medical Screen Exam Complete: Yes Emergency Medical Condition: Yes Medical Record Reviewed: Yes Interpretation(s) ECG shows normal sinus rhythm at 60, no ST elevation or depression, normal intervals Differential Diagnosis Dehydration versus anemia versus dissection Narrative Course Patient is a 66-year-old female who comes in from the oncology center due to an episode of low blood pressure. Patient is completely asymptomatic at this time. Her blood pressure is 135/80 in her right arm, but 90/53 in the left arm. She has been here before for this issue. IV established, labs sent. Labs show a low hemoglobin, and neutropenia. I spoke with Dr. Mcclain, as he is treating her for these issues. He is comfortable her with her going home and following up for treatment as scheduled. CTA of the aorta ordered. Signed out to Dr. Yap to follow up CTA and disposition the patient. Condition: Stable Noa Lin MD Dec 28, 2016 17:23
--- NOTE | 2016-12-28 17:32 | RADRPT ---
EXAM DATE/TIME: 12/28/2016 16:25 [place] COMPARISON: No previous studies available for comparison. INDICATIONS : Hypotension; evaluate for aortic dissection. IV CONTRAST: 100 cc Omnipaque 350 (iohexol) IV RADIATION DOSE: 8.44 CTDIvol (mGy) MEDICAL HISTORY : Hypertension. Chronic obstructive pulmonary disease. Diabetes mellitus type 2.Diverticulitis SURGICAL HISTORY : Appendectomy. Tubal ligation. ENCOUNTER: Initial ACUITY: 1 day PAIN SCALE: 0/10 LOCATION: chest TECHNIQUE: Volumetric scanning was performed using a multi-row detector CT scanner. The data was post processed with a variety of visualization algorithms including full volume maximum intensity projection, multi -planar sliding thin slab reformation, curved planar reformation, and surface rendering techniques. Using automated exposure control and adjustment of the mA and/or kV according to patient size, radiat ion dose was kept as low as reasonably achievable to obtain optimal diagnostic quality images. DICOM format image data is available electronically for review and comparison. FINDINGS: LUNGS: There is no consolidation or pneumothorax. No concerning pulmonary nodule is visualized. No pleural fluid is present. Chronic airway disease with mild fibrotic change is noted. MEDIASTINUM: No abnormally enlarged lymph nodes by CT criteria. No axillary or hilar abnormalities are identified. ABDOMEN: The liver and spleen are free of focal defects. The gallbladder and pancreas demonstrate no abnormali ty. The adrenal glands are normal. The kidneys demonstrate no evidence of solid renal mass or hydrone phrosis. Focal cortical scarring is seen along the lateral margin of the mid left kidney. No free flu id or abdominal masses are identified. No para-aortic adenopathy is seen. PELVIS: No evidence of free fluid or pelvic mass. No abnormally enlarged inguinal or retroperitoneal lymph no sergio are present. The bladder is unremarkable. THORACIC AORTA: The thoracic aortic root is normal with normal branching of the great vessels. There is no evidence of aneurysm or dissection. ABDOMINAL AORTA: The aorta is normal in caliber without aneurysm or dissection. Calcified plaque is identified at the origin of the celiac, superior mesenteric and renal arteries. The celiac has a high-grade stenosis at its origin. There is mild to moderate narrowing in the proximal superior mesenteric artery. The righ t renal artery demonstrates a moderate stenosis. The left renal artery demonstrates mild narrowing. PELVIC VESSELS: The internal iliac and external iliac vessels are patent without aneurysm or stenosis. CONCLUSION: 1. No evidence of aortic aneurysm or dissection. 2. 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 3. Calcified plaque at the origin of the superior mesenteric artery with mild to moderate stenosis. 4. Calcified plaque at the origin of the right renal artery with suspected significant stenosis. 5. Chronic lung changes without evidence of acute process. Right renal cortical scarring. 6. Otherwise unremarkable soft tissue structures of the abdomen and pelvis. Alhaji Mendoza MD on December 28, 2016 at 17:25 Board Certified Radiologist. This report was verified electronically.
[2016-12-28 17:49] VITALS: BP_SYST 100; BP_SYST 153; BP_DIAS 66; BP_DIAS 68; PULSE 67; RESP 32; O2SAT 98
--- NOTE | 2016-12-28 18:32 | PD ---
Physical Exam Narrative GENERAL: SKIN: Warm and dry. HEAD: Atraumatic. Normocephalic. EYES: Pupils equal and round. No scleral icterus. No injection or drainage. ENT: No nasal bleeding or discharge. Mucous membranes pink and moist. NECK: Trachea midline. No JVD. CARDIOVASCULAR: Regular rate and rhythm. pulses equal bilaterally at radial/ femoral/dorsalis pedis. patient neg for orthostatics RESPIRATORY: No accessory muscle use. Clear to auscultation. Breath sounds equal bilaterally. GASTROINTESTINAL: Abdomen soft, non-tender, nondistended MUSCULOSKELETAL: Extremities without clubbing, cyanosis, or edema. No obvious deformities. NEUROLOGICAL: Awake and alert. No obvious cranial nerve deficits. Motor grossly within normal limits. Five out of 5 muscle strength in the arms and legs. Normal speech. PSYCHIATRIC: Appropriate mood and affect; insight and judgment normal. Data Data Last Documented VS Vital Signs Date Time Temp Pulse Resp B/P (MAP) Pulse Ox O2 Delivery O2 Flow Rate FiO2 12/28/16 17:49 67 32 153/68 (96) 98 2.00 100/66 (77) 12/28/16 15:15 Nasal Cannula 12/28/16 14:46 98.6 Orders Orders Electrocardiogram (12/28/16 15:03) Ckmb (Isoenzyme) Profile (12/28/16 15:03) Complete Blood Count With Diff (12/28/16 15:03) Comprehensive Metabolic Panel (12/28/16 15:03) Prothrombin Time / Inr (Pt) (12/28/16 15:03) Act Partial Throm Time (Ptt) (12/28/16 15:03) Troponin I (12/28/16 15:03) Chest, Single Ap (12/28/16 15:03) Ecg Monitoring (12/28/16 15:03) Bilateral Bp Monitoring (12/28/16 15:03) Iv Access Insert/Monitor (12/28/16 15:03) Oximetry (12/28/16 15:03) Oxygen Administration (12/28/16 15:03) Sodium Chloride 0.9% Flush (Ns Flush) (12/28/16 15:15) Cta Thor Abd Aorta W Iv C W3d (12/28/16 15:03) Sodium Chlor 0.9% 1000 Ml Inj (Ns 1000 M (12/28/16 15:15) Iohexol 350 Inj (Omnipaque 350 Inj) (12/28/16 14:34) Labs Laboratory Tests Test 12/28/16 15:00 White Blood Count 1.0 TH/MM3 Red Blood Count 2.65 MIL/MM3 Hemoglobin 8.1 GM/DL Hematocrit 24.2 % Mean Corpuscular Volume 91.1 FL Mean Corpuscular Hemoglobin 30.7 PG Mean Corpuscular Hemoglobin Concent 33.6 % Red Cell Distribution Width 19.6 % Platelet Count 26 TH/MM3 Mean Platelet Volume 8.2 FL Neutrophils (%) (Auto) 49.5 % Lymphocytes (%) (Auto) 35.7 % Monocytes (%) (Auto) 12.4 % Eosinophils (%) (Auto) 1.8 % Basophils (%) (Auto) 0.6 % Neutrophils # (Auto) 0.5 TH/MM3 Lymphocytes # (Auto) 0.3 TH/MM3 Monocytes # (Auto) 0.1 TH/MM3 Eosinophils # (Auto) 0.0 TH/MM3 Basophils # (Auto) 0.0 TH/MM3 CBC Comment AUTO DIFF Differential Total Cells Counted 100 Neutrophils % (Manual) 41 % Band Neutrophils % 3 % Lymphocytes % 46 % Monocytes % 10 % Neutrophils # (Manual) 0.4 TH/MM3 Nucleated Red Blood Cells 1 /100 WBC Differential Comment FINAL DIFF MANUAL Platelet Estimate LOW Platelet Morphology Comment NORMAL Tear Drop Cells 1+ Ovalocytes 1+ Prothrombin Time 10.7 SEC Prothromb Time International Ratio 1.0 RATIO Activated Partial Thromboplast Time 29.6 SEC Blood Urea Nitrogen 14 MG/DL Creatinine 0.79 MG/DL Random Glucose 119 MG/DL Total Protein 6.6 GM/DL Albumin 3.4 GM/DL Calcium Level 8.3 MG/DL Alkaline Phosphatase 74 U/L Aspartate Amino Transf (AST/SGOT) 11 U/L Alanine Aminotransferase (ALT/SGPT) 11 U/L Total Bilirubin 0.4 MG/DL Sodium Level 138 MEQ/L Potassium Level 3.7 MEQ/L Chloride Level 104 MEQ/L Carbon Dioxide Level 28.9 MEQ/L Anion Gap 5 MEQ/L Estimat Glomerular Filtration Rate 73 ML/MIN Total Creatine Kinase 52 U/L Troponin I LESS THAN 0.02 NG/ML [facility] Medical Record Reviewed: Yes Supervised Visit with LEMUEL: No Narrative Course patient ct aorta was negative for dissection or aneurysm. only major findings were of stenosis at celiac, sma and renal which is chronic finding but made patient aware nonetheless. patient is able to ambulate without any assistance and can tolerate po, will d/c home and urge her to continue her follow up for her myelodysplastic syndrome with dr jerez Diagnosis Primary Impression: medical clearance Patient Instructions: General Instructions Additional Instruction: no evidence of aneurysm or dissection throughout your entire aorta. cat scan findings were discussed with you and dr jerez can review them as well. Disposition: 01 DISCHARGE HOME Condition: Stable Wayne Yap MD Dec 28, 2016 18:32
--- NOTE | 2016-12-28 18:45 | EKG ---
Date Performed: 12/28/2016 Time Performed: 15:24:57 PTAGE: 66 years EKG: Sinus rhythm NORMAL ECG PREVIOUS TRACING : 10/03/2016 21.43 No significant change from previous tracing noted. DOCTOR: Brown Aragon Interpretating Date/Time 12/28/2016 18:43:38
[2016-12-28 19:12] VITALS: BP 100/66
== END 2016-12-28 19:20 | disposition home or self-care (01) ==
LOC: NEPD 14:33
DX: R03.1 Nonspecific low blood-pressure reading (principal); J45.909 Unspecified asthma, uncomplicated; D64.9 Anemia, unspecified; F31.9 Bipolar disorder, unspecified; F41.9 Anxiety disorder, unspecified; F32.9 Major depressive disorder, single episode, unspecified; E78.5 Hyperlipidemia, unspecified; J44.9 Chronic obstructive pulmonary disease, unspecified; E11.9 Type 2 diabetes mellitus without complications; K21.9 Gastro-esophageal reflux disease without esophagitis; I10 Essential (primary) hypertension; D72.819 Decreased white blood cell count, unspecified; D46.9 Myelodysplastic syndrome, unspecified
CPT/HCPCS: 71010; 71275; 74174; 80053; 82550; 84484; 85007; 85027; 85610; 85730; 93005; 99285; J7030; Q9967